=== PATIENT | female | born 1935 | race Caucasian/White ===

== ENCOUNTER 2025-03-21 17:23 | Inpatient (IN) | payer MEDICARE, OTHER, SELFPAY ==
[2025-03-21] VITALS (7 sets, daily range): BP systolic 121–175; BP diastolic 66–103; PULSE 94–103; RESP 15–18; TEMP 36.7; O2SAT 95–98; BMI 19.5
--- NOTE | 2025-03-21 17:26 | CTR_ITS ---
PROCEDURE INFORMATION: Exam: CT Cervical Spine Without Contrast Exam date and time: 03/21/2025 6:19 PM Age: 89 years old Clinical indication: Injury or trauma; Blunt trauma; EMS arrival for fall. PT found by sample collector laying on the floor in shower. Laceration to back of head. TECHNIQUE: Imaging protocol: Computed tomography of the cervical spine without contrast. Radiation optimization: All CT scans at this facility use at least one of these dose optimization techniques: automated exposure control; mA and/or kV adjustment per patient size (includes targeted exams where dose is matched to clinical indication); or iterative reconstruction. COMPARISON: CR (CHEST, ) 03/21/2025 5:59 PM RADIATION DOSE METRICS: Total DLP (mGy-cm): 140.2 FINDINGS: Bones: No acute fracture of the cervical spine is identified. Normal alignment and curvature. Multilevel degenerative change greatest at C5-C6. No severe spinal canal stenosis. There is incidental notation of biconcave compression deformity at T3 with approximately 75% height loss centrally. This is age indeterminate given the lack of any comparison imaging. Lungs: Lung apices reveal emphysematous changes but no trauma. Soft tissues: Unremarkable. CT/CT cervical spin wo con* [id number] IMPRESSION: 1. No acute trauma to the cervical spine is identified. 2. Incidental notation of biconcave compression deformity of T3 with 75% height loss centrally, age-indeterminate.
--- NOTE | 2025-03-21 17:26 | CTR_ITS ---
PROCEDURE INFORMATION: Exam: CT Head Without Contrast Exam date and time: 03/21/2025 6:19 PM Age: 89 years old Clinical indication: Injury or trauma; Blunt trauma (contusions or hematomas); EMS arrival for fall. PT found by piler laying on the floor in shower. Laceration to back of head. TECHNIQUE: Imaging protocol: Computed tomography of the head without contrast. Radiation optimization: All CT scans at this facility use at least one of these dose optimization techniques: automated exposure control; mA and/or kV adjustment per patient size (includes targeted exams where dose is matched to clinical indication); or iterative reconstruction. COMPARISON: CT cervical spin wo con* [id number] 03/21/2025 6:19 PM RADIATION DOSE METRICS: Total DLP (mGy-cm): 1061.4 FINDINGS: Brain: No acute infarction, hemorrhage, mass, or extra-axial fluid collection is identified. No midline shift. 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 Cerebral ventricles: No hydrocephalus. Paranasal sinuses: Paranasal sinuses are grossly clear. Mastoid air cells: Mastoid air cells are grossly clear. Bones: Calvarium appears intact. Soft tissues: Unremarkable. CT/CT head wo con* [id number] IMPRESSION: No acute intracranial abnormality.
--- NOTE | 2025-03-21 17:34 | XRR_ITS ---
PROCEDURE INFORMATION: Exam: XR Left Ribs with PA Chest Exam date and time: 03/21/2025 5:59 PM Age: 89 years old Clinical indication: Chest wall pain; Left; Lt rib pain post fall TECHNIQUE: Imaging protocol: Radiologic exam of the left ribs with PA chest. Views: 3 views COMPARISON: CR (CHEST, ) 03/21/2025 5:49 PM FINDINGS: Lungs: Visualized portions of the lungs are clear. Pleural spaces: Unremarkable. No pleural effusion. No pneumothorax. Heart/Mediastinum: Heart is within normal limits of size. Bones/joints: No displaced rib fracture is identified. XR/XR ribs LT mn 3V w CXR1V [id number] IMPRESSION: 1. No acute infiltrate. 2. No rib fracture is identified.
--- NOTE | 2025-03-21 17:35 | W.ED.FALL ---
Documented by User: Sai Allen DO 03/23/25 06:15 HPI - Fall General: Chief Complaint: Fall Stated Complaint: head lac s/p fall Time Seen by Provider: 03/21/25 17:26 History of Present Illness: 89-year-old female presents to the emergency room after a fall. She was found in the shower by her diesel service technician. She usually uses a walker she had not taken it with her she had gotten up to go to the restroom and fallen. She tells me she had waited for a while and became worried she would soil herself so tried to go on her own. She denies any chest pain lightheadedness or dizziness she did fall and hit the back of her head as a small laceration. She is complaining of left shoulder pain left hip pain left rib pain. No loss conscious no vomiting no visual changes Associated symptoms-after fall: Denies abdominal pain, chest pain or neck pain Related Data Home Medications ?Medication ?Instructions ?Recorded ?Confirmed amlodipine 10 mg tablet 10 mg PO DAILY 03/22/25 03/22/25 aspirin 81 mg tablet 81 mg PO DAILY 03/22/25 03/22/25 atorvastatin 20 mg tablet 20 mg PO QPM 03/22/25 03/22/25 clonidine 0.2 mg/24 hr weekly 1 patch transdermal Q7D 03/22/25 03/22/25 transdermal patch donepezil 10 mg tablet 10 mg PO BEDTIME 03/22/25 03/22/25 hydralazine 50 mg tablet 50 mg PO QID 03/22/25 03/22/25 levothyroxine 88 mcg tablet 88 mcg PO QAM 03/22/25 03/22/25 lisinopril 20 mg tablet 20 mg PO BID 03/22/25 03/22/25 magnesium oxide 400 mg PO BEDTIME 03/22/25 03/22/25 mirabegron 25 mg tablet,extended 25 mg PO BEDTIME 03/22/25 03/22/25 release 24 hr (Myrbetriq) omeprazole 20 mg capsule,delayed 20 mg PO DAILY 03/22/25 03/22/25 release polyethylene glycol 3350 17 gram 17 g PO DAILY PRN Constipation 03/22/25 03/22/25 oral powder packet (Miralax) potassium chloride 10 mEq 10 meq PO DAILY 03/22/25 03/22/25 capsule,extended release sertraline 25 mg tablet 25 mg PO DAILY 03/22/25 03/22/25 trazodone 50 mg tablet 50 mg PO BEDTIME PRN Insomnia 03/22/25 03/22/25 Allergies Allergy/AdvReac Type Severity Reaction Status Date / Time No Known Allergies Allergy Verified 03/21/25 17:30 Review of Systems Const: Denies: fever(s) or chills Card: Denies: chest pain Resp: Denies: dyspnea GI: Denies: abdominal pain : Denies: dysuria, urinary frequency or urinary urgency Musc: Reports: joint pain; Denies: neck pain or back pain Skin/Breast: Denies: rash Physical Exam Const: COMMON NORMALS: no acute distress GENERAL APPEARANCE: cooperative and comfortable ORIENTATION/CONSCIOUSNESS: Yes awake HENMT: COMMON NORMALS: normocephalic, atraumatic and hearing grossly normal bilaterally HEAD & SCALP: normocephalic and atraumatic Resp: COMMON NORMALS: normal respiratory effort, No retractions, No use of accessory muscles and clear to auscultation bilaterally AUSCULTATION: clear to auscultation bilaterally Cardio: COMMON NORMALS: regular rate, regular rhythm and No murmurs present (Cardio) RATE: regular rate RHYTHM: regular rhythm GI: COMMON NORMALS: Soft to palpation and No hepatosplenomegaly present AUSCULTATION: Yes normoactive bowel sounds PALPATION: Yes Soft to palpation, No Tenderness to palpation present (GI), No Guarding due to palpation present (GI) and Yes No hepatosplenomegaly present Extremity: COMMON NORMALS: normal to inspection, capillary refill normal, no clubbing, cyanosis or edema, no calf tenderness and no pedal edema Skin: COMMON NORMALS: no rashes or lesions noted GENERAL SKIN EXAM: no rashes or lesions noted Course Vital Signs: Vital signs: Vital Signs Temperature 98.3 F 03/23/25 03:38 Pulse Rate 85 03/23/25 06:10 Respiratory Rate 16 03/23/25 03:38 Blood Pressure 103/68 03/23/25 03:38 Pulse Oximetry 94 03/23/25 03:38 Oxygen Delivery Me thod Nasal Cannula 03/22/25 21:13 Oxygen Flow Rate 3 03/22/25 21:13 MDM - Fall Medical Decision Making Labs and imaging pending. Care signed out to Dr. Wahl at change of shift. See final notes for diagnosis and disposition. 89-year-old female checked out to me at shift change by the previous physician. She had fallen at home. She is experiencing significant left hip pain. Hip x-ray is negative. Shoulder x-ray shows no fracture and no dislocation. Rib x-rays were negative. No infiltrate. Head and cervical spine CTs are nonacute. Patient on my repeat examination still was experiencing extreme left hip pain with movement CT was ordered showing left acetabular fracture with left superior and inferior pubic rami fractures. Spoke with orthopedics. He will consult and see her in the morning. Likely nonsurgical management. Spoke with hospitalist who is willing to admit. She will see the patient in the emergency department. Lab Data 03/23/25 05:01 03/23/25 05:01 Radiology Impressions Cervical Spine CT 03/21/25 17:26 IMPRESSION: 1. No acute trauma to the cervical spine is identified. 2. Incidental notation of biconcave compression deformity of T3 with 75% height loss centrally, age-indeterminate. Head CT 03/21/25 17:26 IMPRESSION: No acute intracranial abnormality. Ribs X-Ray 03/21/25 17:34 IMPRESSION: 1. No acute infiltrate. 2. No rib fracture is identified. Hip/Pelvis X-Ray 03/21/25 17:36 IMPRESSION: No acute fracture is identified. Shoulder X-Ray 03/21/25 17:36 IMPRESSION: 1. No evidence of shoulder fracture or dislocation. 2. Wedging compression deformities of the thoracic spine of uncertain age. Pelvis CT 03/21/25 20:13 IMPRESSION: Left acetabular fracture also with fractures of the left superior and inferior pubic rami Chest X-Ray 03/22/25 04:03 IMPRESSION: 1. Lung hyperinflation. Laboratory Results WBC 15.86 10^3/uL (3.29-11.43) H 03/21/25 17:50 RBC 4.15 10^6/uL (3.85-5.65) 03/21/25 17:50 Hgb 10.10 g/dL (11.27-16.99) L 03/21/25 17:50 Hct 33.5 % (36-47) L 03/21/25 17:50 MCV 80.7 fl (85-98) L 03/21/25 17:50 MCH 24.3 pg (27-33) L 03/21/25 17:50 MCHC 30.1 g/dL (30-55) 03/21/25 17:50 RDW 14.5 % (12.1-15.1) 03/21/25 17:50 Plt Count 313 10^3/cmm (157-399) 03/21/25 17:50 MPV 11.0 fL (7.4-10.4) H 03/21/25 17:50 Neut % (Auto) 86.4 % 03/21/25 17:50 Lymph % (Auto) 4.2 % 03/21/25 17:50 [facility] % (Auto) 8.0 % 03/21/25 17:50 Eos % (Auto) 0.3 % 03/21/25 17:50 Baso % (Auto) 0.3 % 03/21/25 17:50 Neut # (Auto) 13.73 10^3/uL (1.8-7.7) H 03/21/25 17:50 Lymph # (Auto) 0.7 10^3/uL (0.8-4.8) L 03/21/25 17:50 [facility] # (Auto) 1.3 10^3/uL (0.2-0.9) H 03/21/25 17:50 Eos # (Auto) 0.0 10^3/uL (0.0-0.8) 03/21/25 17:50 Baso # (Auto) 0.0 10^3/uL (0.0-0.1) 03/21/25 17:50 Nucleated RBC % (auto) 0 % 03/21/25 17:50 Nucleated RBCs # 0.0 /100WBC 03/21/25 17:50 Sodium 137 mmol/L (136-145) 03/21/25 17:50 Potassium 4.3 mmol/L (3.5-5.1) 03/21/25 17:50 Chloride 96 mmol/L (98-107) L 03/21/25 17:50 Carbon Dioxide 27 mmol/L (22-29) 03/21/25 17:50 Anion Gap 19.3 (5-19) H 03/21/25 17:50 BUN 20 mg/dL (8-23) 03/21/25 17:50 Creatinine 0.9 mg/dL (0.5-0.9) 03/21/25 17:50 GFR Calculation Not Reportable 03/21/25 17:50 Glucose 111 mg/dL (65-115) 03/21/25 17:50 Calculated Osmolality 291 mOsm/kg (285-295) 03/21/25 17:50 Calcium 10.7 mg/dL (8.5-10.5) H 03/21/25 17:50 Total Bilirubin 0.2 mg/dL (0.15-1.2) 03/21/25 17:50 AST 13 U/L (0-32) 03/21/25 17:50 ALT 18 U/L (0-33) 03/21/25 17:50 Alkaline Phosphatase 106 U/L (35-105) H 03/21/25 17:50 Total Protein 7.1 g/dL (6.6-8.7) 03/21/25 17:50 Albumin 3.3 g/dL (3.5-5.2) L 03/21/25 17:50 Globulin 3.8 g/dL (1.3-4.6) 03/21/25 17:50 Urine Color Yellow (Yellow) 03/21/25 20:39 Urine Appearance Clear (CLEAR) 03/21/25 20:39 Urine pH 6.0 (5-7) 03/21/25 20:39 Ur Specific [place] 1.022 (1.005-1.030) 03/21/25 20:39 Urine Protein 1+ (Negative) A 03/21/25 20:39 Urine Glucose (UA) Negative (Normal) 03/21/25 20:39 Urine Ketones Trace (Negative) 03/21/25 20:39 Urine Blood Negative (Negative) 03/21/25 20:39 Urine Nitrate Negative (Negative) 03/21/25 20:39 Urine Bilirubin Negative (Negative) 03/21/25 20:39 Urine Urobilinogen 1.0 mg/dL (Negative) 03/21/25 20:39 Ur Leukocyte Esterase Negative (Negative) 03/21/25 20:39 Urine RBC 0-2 /hpf (0-2) 03/21/25 20:39 Urine WBC 0-5 /hpf (0-5) 03/21/25 20:39 Ur Squamous Epith Cells 0-5 /hpf (0-5) 03/21/25 20:39 Amorphous Sediment Not Reportable 03/21/25 20:39 Urine Bacteria None seen /hpf (NONE) 03/21/25 20:39 Hyaline Casts 6.20 /lpf 03/21/25 20:39 Discharge Plan Discharge Patient Disposition: Admitted As Inpatient Admit Provider: Tamiko Galaviz Clinical Impression: Closed fracture of left inferior pubic ramus, Closed fracture of left superior pubic ramus Acetabulum fracture, left Qualifiers: Encounter type: initial encounter Sublocation of acetabulum: other portion of acetabulum Fracture type: closed Qualified Code(s): S32.492A - Other specified fracture of left acetabulum, initial encounter for closed fracture Condition: Stable Coding Level of Care Code ED Billiard Player for Chg Fwd Documented by User: Mt Wahl, 03/21/25 22:47 HPI - Fall General: Chief Complaint: Fall Stated Complaint: head lac s/p fall Time Seen by Provider: 03/21/25 17:26 Related Data Home Medications ?Medication ?Instructions ?Recorded ?Confirmed amlodipine 10 mg tablet 10 mg PO DAILY 03/22/25 03/22/25 aspirin 81 mg tablet 81 mg PO DAILY 03/22/25 03/22/25 atorvastatin 20 mg tablet 20 mg PO QPM 03/22/25 03/22/25 clonidine 0.2 mg/24 hr weekly 1 patch transdermal Q7D 03/22/25 03/22/25 transdermal patch donepezil 10 mg tablet 10 mg PO BEDTIME 03/22/25 03/22/25 hydralazine 50 mg tablet 50 mg PO QID 03/22/25 03/22/25 levothyroxine 88 mcg tablet 88 mcg PO QAM 03/22/25 03/22/25 lisinopril 20 mg tablet 20 mg PO BID 03/22/25 03/22/25 magnesium oxide 400 mg PO BEDTIME 03/22/25 03/22/25 mirabegron 25 mg tablet,extended 25 mg PO BEDTIME 03/22/25 03/22/25 release 24 hr (Myrbetriq) omeprazole 20 mg capsule,delayed 20 mg PO DAILY 03/22/25 03/22/25 release polyethylene glycol 3350 17 gram 17 g PO DAILY PRN Constipation 03/22/25 03/22/25 oral powder packet (Miralax) potassium chloride 10 mEq 10 meq PO DAILY 03/22/25 03/22/25 capsule,extended release sertraline 25 mg tablet 25 mg PO DAILY 03/22/25 03/22/25 trazodone 50 mg tablet 50 mg PO BEDTIME PRN Insomnia 03/22/25 03/22/25 Allergies Allergy/AdvReac Type Severity Reaction Status Date / Time No Known Allergies Allergy Verified 03/21/25 17:30 Course Vital Signs: Vital signs: Vital Signs Temperature 98.3 F 03/23/25 03:38 Pulse Rate 85 03/23/25 06:10 Respiratory Rate 16 03/23/25 03:38 Blood Pressure 103/68 03/23/25 03:38 Pulse Oximetry 94 03/23/25 03:38 Oxygen Delivery Me thod Nasal Cannula 03/22/25 21:13 Oxygen Flow Rate 3 03/22/25 21:13 MDM - Fall Medical Decision Making 89-year-old female checked out to me at shift change by the previous physician. She had fallen at home. She is experiencing significant left hip pain. Hip x-ray is negative. Shoulder x-ray shows no fracture and no dislocation. Rib x-rays were negative. No infiltrate. Head and cervical spine CTs are nonacute. Patient on my repeat examination still was experiencing extreme left hip pain with movement CT was ordered showing left acetabular fracture with left superior and inferior pubic rami fractures. Spoke with orthopedics. He will consult and see her in the morning. Likely nonsurgical management. Spoke with hospitalist who is willing to admit. She will see the patient in the emergency department. Lab Data 03/23/25 05:01 03/23/25 05:01 Radiology Impressions Cervical Spine CT 03/21/25 17:26 IMPRESSION: 1. No acute trauma to the cervical spine is identified. 2. Incidental notation of biconcave compression deformity of T3 with 75% height loss centrally, age-indeterminate. Head CT 03/21/25 17:26 IMPRESSION: No acute intracranial abnormality. Ribs X-Ray 03/21/25 17:34 IMPRESSION: 1. No acute infiltrate. 2. No rib fracture is identified. Hip/Pelvis X-Ray 03/21/25 17:36 IMPRESSION: No acute fracture is identified. Shoulder X-Ray 03/21/25 17:36 IMPRESSION: 1. No evidence of shoulder fracture or dislocation. 2. Wedging compression deformities of the thoracic spine of uncertain age. Pelvis CT 03/21/25 20:13 IMPRESSION: Left acetabular fracture also with fractures of the left superior and inferior pubic rami Chest X-Ray 03/22/25 04:03 IMPRESSION: 1. Lung hyperinflation. Laboratory Results WBC 15.86 10^3/uL (3.29-11.43) H 03/21/25 17:50 RBC 4.15 10^6/uL (3.85-5.65) 03/21/25 17:50 Hgb 10.10 g/dL (11.27-16.99) L 03/21/25 17:50 Hct 33.5 % (36-47) L 03/21/25 17:50 MCV 80.7 fl (85-98) L 03/21/25 17:50 MCH 24.3 pg (27-33) L 03/21/25 17:50 MCHC 30.1 g/dL (30-55) 03/21/25 17:50 RDW 14.5 % (12.1-15.1) 03/21/25 17:50 Plt Count 313 10^3/cmm (157-399) 03/21/25 17:50 MPV 11.0 fL (7.4-10.4) H 03/21/25 17:50 Neut % (Auto) 86.4 % 03/21/25 17:50 Lymph % (Auto) 4.2 % 03/21/25 17:50 [facility] % (Auto) 8.0 % 03/21/25 17:50 Eos % (Auto) 0.3 % 03/21/25 17:50 Baso % (Auto) 0.3 % 03/21/25 17:50 Neut # (Auto) 13.73 10^3/uL (1.8-7.7) H 03/21/25 17:50 Lymph # (Auto) 0.7 10^3/uL (0.8-4.8) L 03/21/25 17:50 [facility] # (Auto) 1.3 10^3/uL (0.2-0.9) H 03/21/25 17:50 Eos # (Auto) 0.0 10^3/uL (0.0-0.8) 03/21/25 17:50 Baso # (Auto) 0.0 10^3/uL (0.0-0.1) 03/21/25 17:50 Nucleated RBC % (auto) 0 % 03/21/25 17:50 Nucleated RBCs # 0.0 /100WBC 03/21/25 17:50 Sodium 137 mmol/L (136-145) 03/21/25 17:50 Potassium 4.3 mmol/L (3.5-5.1) 03/21/25 17:50 Chloride 96 mmol/L (98-107) L 03/21/25 17:50 Carbon Dioxide 27 mmol/L (22-29) 03/21/25 17:50 Anion Gap 19.3 (5-19) H 03/21/25 17:50 BUN 20 mg/dL (8-23) 03/21/25 17:50 Creatinine 0.9 mg/dL (0.5-0.9) 03/21/25 17:50 GFR Calculation Not Reportable 03/21/25 17:50 Glucose 111 mg/dL (65-115) 03/21/25 17:50 Calculated Osmolality 291 mOsm/kg (285-295) 03/21/25 17:50 Calcium 10.7 mg/dL (8.5-10.5) H 03/21/25 17:50 Total Bilirubin 0.2 mg/dL (0.15-1.2) 03/21/25 17:50 AST 13 U/L (0-32) 03/21/25 17:50 ALT 18 U/L (0-33) 03/21/25 17:50 Alkaline Phosphatase 106 U/L (35-105) H 03/21/25 17:50 Total Protein 7.1 g/dL (6.6-8.7) 03/21/25 17:50 Albumin 3.3 g/dL (3.5-5.2) L 03/21/25 17:50 Globulin 3.8 g/dL (1.3-4.6) 03/21/25 17:50 Urine Color Yellow (Yellow) 03/21/25 20:39 Urine Appearance Clear (CLEAR) 03/21/25 20:39 Urine pH 6.0 (5-7) 03/21/25 20:39 Ur Specific [place] 1.022 (1.005-1.030) 03/21/25 20:39 Urine Protein 1+ (Negative) A 03/21/25 20:39 Urine Glucose (UA) Negative (Normal) 03/21/25 20:39 Urine Ketones Trace (Negative) 03/21/25 20:39 Urine Blood Negative (Negative) 03/21/25 20:39 Urine Nitrate Negative (Negative) 03/21/25 20:39 Urine Bilirubin Negative (Negative) 03/21/25 20:39 Urine Urobilinogen 1.0 mg/dL (Negative) 03/21/25 20:39 Ur Leukocyte Esterase Negative (Negative) 03/21/25 20:39 Urine RBC 0-2 /hpf (0-2) 03/21/25 20:39 Urine WBC 0-5 /hpf (0-5) 03/21/25 20:39 Ur Squamous Epith Cells 0-5 /hpf (0-5) 03/21/25 20:39 Amorphous Sediment Not Reportable 03/21/25 20:39 Urine Bacteria None seen /hpf (NONE) 03/21/25 20:39 Hyaline Casts 6.20 /lpf 03/21/25 20:39 All radiology interpretation(s) finalized by discharge Discharge Plan Discharge Patient Disposition: Admitted As Inpatient Admit Provider: Tamiko Galaviz Clinical Impression: Closed fracture of left inferior pubic ramus, Closed fracture of left superior pubic ramus Acetabulum fracture, left Qualifiers: Encounter type: initial encounter Sublocation of acetabulum: other portion of acetabulum Fracture type: closed Qualified Code(s): S32.492A - Other specified fracture of left acetabulum, initial encounter for closed fracture Condition: Stable Coding Level of Care Code ED Billiard Player for Jaime Smith
--- NOTE | 2025-03-21 17:36 | XRR_ITS ---
PROCEDURE INFORMATION: Exam: XR Left Hip Exam date and time: 03/21/2025 6:03 PM Age: 89 years old Clinical indication: Hip pain; Left hip; Prior surgery; Surgery date: 6+ months; Surgery type: Lt hip arthroplasty; Additional info: Lt shoulder pain post fall TECHNIQUE: Imaging protocol: Radiologic exam of the left hip. Views: 2 or 3 views hip with pelvis when performed. COMPARISON: No relevant prior studies available. FINDINGS: Bones/joints: Bones are moderately osteopenic. There is old healed proximal left femoral fracture status post open reduction internal fixation with metallic hardware. There is also old healed fracture proximal right femur post open reduction internal fixation with metallic hardware. No acute fracture is demonstrated. There is what appears to be vertebroplasty involving the 1st sacral segment. Soft tissues: Unremarkable. Vasculature: There is distal end of a abdominal aortic in the iliac stent graft repair seen. XR/XR hip LT 2-3V wo/w pel* [id number] IMPRESSION: No acute fracture is identified.
--- NOTE | 2025-03-21 17:36 | XRR_ITS ---
PROCEDURE INFORMATION: Exam: XR Left Shoulder Exam date and time: 03/21/2025 5:49 PM Age: 89 years old Clinical indication: Left; Lt shoulder pain post fall TECHNIQUE: Imaging protocol: Radiologic exam of the left shoulder. Views: 2 or more views. COMPARISON: No relevant prior studies available. FINDINGS: Bones/joints: There is no evidence of acute fracture or dislocation. There are degenerative changes in the acromioclavicular joint with degenerative spurring from the distal clavicle. There is moderate compression deformity of T4 and mild compression at T5 and T7 of uncertain age, probably chronic. Soft tissues: Normal. XR/XR shoulder LT min 2V* [id number] IMPRESSION: 1. No evidence of shoulder fracture or dislocation. 2. Wedging compression deformities of the thoracic spine of uncertain age.
[2025-03-21 18:04] LABS: Basophils % 0.3 %; Eosinophils % 0.3 %; Hematocrit 33.5 % (36-47); Lymphocytes # 0.7 10^3/uL (0.8-4.8); Lymphocytes % 4.2 %; Mean Corpuscular HGB Conc 30.1 g/dL (30-55); Mean Corpuscular Hemoglobin 24.3 pg (27-33); Mean Corpuscular Volume 80.7 fl (85-98); Monocytes # 1.3 10^3/uL (0.2-0.9); Neutrophils # 13.73 10^3/uL (1.8-7.7); Neutrophils % 86.4 %; Nucleated Red Blood Cells % 0 %; Platelet Count 313 10^3/cmm (157-399); Red Blood Count 4.15 10^6/uL (3.85-5.65); Red Cell Distribution Width 14.5 % (12.1-15.1); White Blood Count 15.86 10^3/uL (3.29-11.43)
[2025-03-21 18:12] LABS: Albumin Level 3.3 g/dL (3.5-5.2); Alkaline Phosphatase 106 U/L (35-105); Chloride 96 mmol/L (98-107); Potassium 4.3 mmol/L (3.5-5.1); Sodium 137 mmol/L (136-145)
[2025-03-21 18:50] LABS: Alanine Aminotransferase 18 U/L (0-33); Anion Gap 19.3 (5-19); Blood Urea Nitrogen 20 mg/dL (8-23); Calcium 10.7 mg/dL (8.5-10.5); Carbon Dioxide 27 mmol/L (22-29); Globulin 3.8 g/dL (1.3-4.6); Glucose 111 mg/dL (65-115); Osmolality Calculated 291 mOsm/kg (285-295); Total Bilirubin 0.2 mg/dL (0.15-1.2); Total Protein 7.1 g/dL (6.6-8.7)
[2025-03-21 19:02] LABS: Aspartate Amino Transferase 13 U/L (0-32)
[2025-03-21] MEDS: ondansetron 2 mg/ML SDV 2 mL 4 MG IVP (19:26)
[2025-03-21] MEDS: morphine 4 mg/mL SDV 1 mL 2 MG IVP (19:26)
--- NOTE | 2025-03-21 20:13 | CTR_ITS ---
PROCEDURE INFORMATION: Exam: CT Pelvis Without Contrast, Skeleton Exam date and time: 03/21/2025 8:44 PM Age: 89 years old Clinical indication: Injury or trauma; Blunt trauma (contusions or hematomas); Prior surgery; Surgery date: 6+ months; Surgery type: Bilat troch nails. Aortic endograft. EMS arrival for fall. Patient found on shower room floor by caregiver. C/O left hip pain. TECHNIQUE: Imaging protocol: Computed tomography of the pelvis without contrast. Exam focused on the skeleton. Radiation optimization: All CT scans at this facility use at least one of these dose optimization techniques: automated exposure control; mA and/or kV adjustment per patient size (includes targeted exams where dose is matched to clinical indication); or iterative reconstruction. 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 This is not fully evaluated. Bones/joints: There is dense material within the 1st sacral segment common Body and lateral wings from prior vertebroplasty. There is metallic hardware right femoral neck from internal fixation of prior injury. There is metallic hardware in the left femoral neck and proximal left femur with old healed left femoral neck fracture. There is acute minimally displaced fracture involving the left inferior pubic ramus. There is also nondisplaced longitudinal fracture of the left superior pubic ramus extending to the body of the pubis. There is also comminuted anterior wall type left acetabular fracture. Soft tissues: Unremarkable. CT/CT bony pelvis [id number] IMPRESSION: Left acetabular fracture also with fractures of the left superior and inferior pubic rami
[2025-03-21 20:53] LABS: Bilirubin Urine Negative (Negative); Blood Urine Negative (Negative); Glucose Urine UA Negative (Normal); Ketones Urine Trace (Negative); Leukocyte Esterase Urine Negative (Negative); Nitrate Urine Negative (Negative); Protein Urine 1+ (Negative); Specific Gravity, Urine 1.022 (1.005-1.030); Urine Appearance Clear (CLEAR); Urine Color Yellow (Yellow)
[2025-03-21 20:58] LABS: Add Urine Microscopic? YES; Bacteria Urine None Seen /hpf; RBC Urine 0-2 /hpf (0-2); Squamous Epithelial Cell Urine 0-5 /hpf (0-5); WBC Urine 0-5 /hpf (0-5)
[2025-03-22] VITALS (12 sets, daily range): BP systolic 99–136; BP diastolic 65–77; PULSE 61–98; RESP 15–19; TEMP 36.5–36.9; O2SAT 91–98
[2025-03-22 03:59] LABS: Glucose Point of Care 134 mg/dL (70-110)
--- NOTE | 2025-03-22 04:03 | XRR_ITS ---
PROCEDURE INFORMATION: Exam: XR Chest Exam date and time: 03/22/2025 4:16 AM Age: 89 years old Clinical indication: Shortness of breath; Worsening hypoxia; Additional info: Increased o2 requirement TECHNIQUE: Imaging protocol: Radiologic exam of the chest. Views: 1 view. COMPARISON: CR (CHEST, ) 03/21/2025 5:59 PM FINDINGS: Lungs: The lungs are hyperinflated. No focal consolidation is appreciated. Pleural spaces: Unremarkable. No pleural effusion. No pneumothorax. Heart/Mediastinum: Heart size is normal. There is calcified plaque involving the aorta. Bones/joints: There are postoperative changes involving the right shoulder. XR/XR chest 1V portable [id number] IMPRESSION: 1. Lung hyperinflation.
[2025-03-22] MEDS: ipratropium-albuterol 3 mL Neb INHALATION (04:30)
[2025-03-22] MEDS: FUROsemide 10 mg/mL SDV 10mL 60 MG IVP (04:38)
--- NOTE | 2025-03-22 05:10 | PM.HP ---
Providers/Chief Complaint Admitting Physician: Tamiko Galaviz MD--- patient seen before midnight Chief Complaint: head lac s/p fall History of Present Illness Francy Chris is a 89 year old female with medical history significant for hypertension hyperlipidemia who gets around fairly well but had had falls in the past resulting in pelvic fracture patient had a bilateral intra trochanteric nailing to both hip because of fracture this time patient had taking a mechanical fall she walks with a cane and fell on the left side fracturing the left acetabulum CT of the pelvic had shown a nondisplaced pelvic fracture on the left and all this has been quoted to be nonsurgical patient will need some good time over in the rehab to recuperate and get well to ambulate. The hallmark of the treatment is pain management and PT OT for evaluation and rehabilitation. Orthopedics on consult to follow-up for a final decision on care Review of Systems Narrative: Generally patient is in apparent distress because of multiple fractures of the lower extremity significant for left acetabulum fracture and left pelvic fracture Medications/Allergies Home Medications ?Medication ?Instructions ?Recorded ?Confirmed ?Last Taken ?Type amlodipine 10 mg tablet 10 mg PO DAILY 03/22/25 03/22/25 03/21/25 08:00 History aspirin 81 mg tablet 81 mg PO DAILY 03/22/25 03/22/25 03/21/25 08:00 History atorvastatin 20 mg tablet 20 mg PO QPM 03/22/25 03/22/25 03/20/25 18:00 History clonidine 0.2 mg/24 hr weekly 1 patch transdermal Q7D 03/22/25 03/22/25 Unknown History transdermal patch donepezil 10 mg tablet 10 mg PO BEDTIME 03/22/25 03/22/25 03/20/25 18:00 History hydralazine 50 mg tablet 50 mg PO QID 03/22/25 03/22/25 03/21/25 08:00 History levothyroxine 88 mcg tablet 88 mcg PO QAM 03/22/25 03/22/25 03/21/25 08:00 History lisinopril 20 mg tablet 20 mg PO BID 03/22/25 03/22/25 03/21/25 08:00 History magnesium oxide 400 mg PO BEDTIME 03/22/25 03/22/25 03/20/25 18:00 History mirabegron 25 mg tablet,extended 25 mg PO BEDTIME 03/22/25 03/22/25 03/20/25 18:00 History release 24 hr (Myrbetriq) omeprazole 20 mg capsule,delayed 20 mg PO DAILY 03/22/25 03/22/25 03/21/25 08:00 History release polyethylene glycol 3350 17 gram 17 g PO DAILY PRN Constipation 03/22/25 03/22/25 Unknown History oral powder packet (Miralax) potassium chloride 10 mEq 10 meq PO DAILY 03/22/25 03/22/25 03/21/25 08:00 History capsule,extended release sertraline 25 mg tablet 25 mg PO DAILY 03/22/25 03/22/25 03/21/25 08:00 History trazodone 50 mg tablet 50 mg PO BEDTIME PRN Insomnia 03/22/25 03/22/25 Unknown History Allergies Allergy/AdvReac Type Severity Reaction Status Date / Time No Known Allergies Allergy Verified 03/21/25 17:30 Vitals/I&O/Wt Last Vital Signs Temp 98.1 F 03/22/25 04:00 Pulse 92 03/22/25 04:30 Resp 18 03/22/25 04:30 BP 135/71 03/22/25 04:00 Pulse Ox 96 03/22/25 04:30 O2 Del Method Nasal Cannula 03/22/25 04:30 O2 Flow Rate 3 03/22/25 04:30 03/21/25 03/21/25 03/22/25 14:59 22:59 06:59 Output Total 100 / 100 Balance -100 / -100 Weight last 48 hrs Weight 45.359 kg Physical Exam Narrative: General patient is lying still supine in bed relating to me that she is in a lot of pain. Pain management initiated with some morphine for care. HEENT normocephalic/atraumatic neck neck is supple cardiovascular heart rate is regular lungs are pretty much clear abdomen soft nontender nondistended unremarkable extremities significant for musculoskeletal injury with fractures of the left acetabulum and left pelvic. Extremities has no no edema has good pulses neurology he has no focality. Urinary Catheter Management: Heath: Cath Placed During This Visit: yes Urinary Catheter Date of Insertion: 03/21/25 Urinary Catheter Time of Insertion: 21:30 Data 03/21/25 17:50 03/21/25 17:50 A&P Assessment and plan (1) Closed fracture of left superior pubic ramus: Continue to monitor and optimize for pain management and PT OT for fall and eventual rehab placement when medically stable (2) Closed fracture of left inferior pubic ramus: Continue to care and optimize pain management and PT OT evaluate for rehab when medically stable (3) Acetabulum fracture, left: Acetabular fracture - Continue with pain management - PT OT to further evaluate and for rehab placement when medically stable (4) Pelvic pain: Patient has left superior ramus pelvic fracture nondisplaced - Pain management with help and following up with physical therapy (5) Hip pain: Status post left acetabular fracture with pain Get pain management for care PT OT on the orthopedic direction (6) Hypertension: Continue home medication for blood pressure. Plan GI and DVT prophylaxis in place PDMP PDMP Reviewed: Last Reviewed 03/22/25 08:10 by Tamiko Galaviz MD Attestations Medical Necessity Statement*: Patient with multiple fractures who cannot walk at this time will need acute pain management and also orthopedics to further see the patient for a final recommendation aside from heading to rehab at this time once medically stable. Patient needs 2 midnights for inpatient care. Coding Level of Care Code 56984 Diagnoses Closed fracture of left superior pubic ramus S32.512A Closed fracture of left inferior pubic ramus S32.592A Acetabulum fracture, left S32.402A Pelvic pain R10.2 Hip pain M25.559 Hypertension I10 Time Spent (min) 60
[2025-03-22] MEDS: levothyroxine 88 mcg Tablet PO (05:44)
[2025-03-22] MEDS: morphine 4 mg/mL SDV 1 mL 2 MG IVP (06:20)
--- NOTE | 2025-03-22 08:30 | PM.CONSULT ---
Providers/Reason For Consult Consulting Physician/Specialty*: Hospitalist Reason for Consult*: Left acetabular fracture Attending Physician: Tamiko Galaviz MD History of Present Illness History of Present Illness Francy Chris is a 89 year old female had a fall in the shower sustaining a left acetabular fracture. Patient is complaining of left shoulder pain and left hip pain. Patient was asleep when I first walked into the room. After awakening she is complaining more of left shoulder pain than left hip pain. Otherwise patient is comfortable. Review of Systems General: Reports: 10 or more systems reviewed and unremarkable except in HPI and below Medications/Allergies Home Medications ?Medication ?Instructions ?Recorded ?Confirmed ?Last Taken ?Type amlodipine 10 mg tablet 10 mg PO DAILY 03/22/25 03/22/25 03/21/25 08:00 History aspirin 81 mg tablet 81 mg PO DAILY 03/22/25 03/22/25 03/21/25 08:00 History atorvastatin 20 mg tablet 20 mg PO QPM 03/22/25 03/22/25 03/20/25 18:00 History clonidine 0.2 mg/24 hr weekly 1 patch transdermal Q7D 03/22/25 03/22/25 Unknown History transdermal patch donepezil 10 mg tablet 10 mg PO BEDTIME 03/22/25 03/22/25 03/20/25 18:00 History hydralazine 50 mg tablet 50 mg PO QID 03/22/25 03/22/25 03/21/25 08:00 History levothyroxine 88 mcg tablet 88 mcg PO QAM 03/22/25 03/22/25 03/21/25 08:00 History lisinopril 20 mg tablet 20 mg PO BID 03/22/25 03/22/25 03/21/25 08:00 History magnesium oxide 400 mg PO BEDTIME 03/22/25 03/22/25 03/20/25 18:00 History mirabegron 25 mg tablet,extended 25 mg PO BEDTIME 03/22/25 03/22/25 03/20/25 18:00 History release 24 hr (Myrbetriq) omeprazole 20 mg capsule,delayed 20 mg PO DAILY 03/22/25 03/22/25 03/21/25 08:00 History release polyethylene glycol 3350 17 gram 17 g PO DAILY PRN Constipation 03/22/25 03/22/25 Unknown History oral powder packet (Miralax) potassium chloride 10 mEq 10 meq PO DAILY 03/22/25 03/22/25 03/21/25 08:00 History capsule,extended release sertraline 25 mg tablet 25 mg PO DAILY 03/22/25 03/22/25 03/21/25 08:00 History trazodone 50 mg tablet 50 mg PO BEDTIME PRN Insomnia 03/22/25 03/22/25 Unknown History Allergies Allergy/AdvReac Type Severity Reaction Status Date / Time No Known Allergies Allergy Verified 03/21/25 17:30 Current Medications Generic Name Dose Route Start Last Admin Trade Name Freq PRN Reason Stop Dose Admin Levothyroxine Sodium 88 mcg 03/22/25 06:00 03/22/25 05:44 Levothyroxine 88 Mcg Tablet PO 88 mcg QAM GARY Administration Morphine Sulfate 2 mg 03/22/25 05:54 03/22/25 06:20 Morphine 4 Mg/Ml Sdv 1 Ml IVP 2 mg Q4H PRN Administration SEVERE PAIN Vitals/I&O/Wt Last Vital Signs Temp 97.9 F 03/22/25 07:13 Pulse 92 03/22/25 07:13 Resp 18 03/22/25 07:13 BP 114/77 03/22/25 07:13 Pulse Ox 95 03/22/25 07:13 O2 Del Method Nasal Cannula 03/22/25 07:13 O2 Flow Rate 3 03/22/25 04:30 03/21/25 03/22/25 03/22/25 22:59 06:59 14:59 Output Total 100 / 100 Balance -100 / -100 Weight last 48 hrs Weight 85 lb 9.6 oz Weight 100 lb Physical Exam Narrative: Alert and oriented x 3 Head is normocephalic atraumatic Respirations are intact No evidence of any rashes or infection 5/5 strength in bilateral upper and lower extremities Sensation intact in all extremities Patient has pain when trying to move her left leg or left arm. Urinary Catheter Management: Heath: Cath Placed During This Visit: yes Reason for Continuing Indwelling Catheter: Other Urinary Catheter Date of Insertion: 03/21/25 Urinary Catheter Time of Insertion: 21:30 Data 03/21/25 17:50 03/21/25 17:50 A&P Assessment and plan (1) Acetabulum fracture, left: Patient has a left acetabular fracture. At this point she should be toe-touch weightbearing Up with physical therapy with toe-touch weightbearing this will be for 12 weeks. X-ray of left shoulder does not show any fracture. PDMP PDMP Reviewed: Not Reviewed Coding Level of Care Code Acute Code for Chg Fwd Diagnoses Other closed fracture of left acetabulum, initial encounter S32.492A Encounter type: initial encounter Sublocation of acetabulum: other portion of acetabulum Fracture type: closed
[2025-03-22] MEDS: amlodipine 10 mg Tablet PO (09:50)
[2025-03-22] MEDS: lisinopril 20 mg Tablet PO ×2 (09:50→18:05)
[2025-03-22] MEDS: aspirin 81 mg EC Tablet PO (09:50)
--- NOTE | 2025-03-22 12:42 | P.PN_ITS ---
Subjective 2 Subjective: seen today has a scalp tenderness Vitals/I&O/Wt Last Vital Signs Temp 98.0 F 03/22/25 11:42 Pulse 83 03/22/25 11:42 Resp 18 03/22/25 11:42 BP 104/65 03/22/25 11:42 Pulse Ox 98 03/22/25 11:42 O2 Del Method Nasal Cannula 03/22/25 11:42 O2 Flow Rate 3 03/22/25 04:30 03/21/25 03/22/25 03/22/25 22:59 06:59 14:59 Output Total 100 / 100 Balance -100 / -100 Weight last 48 hrs Weight 38.828 kg Weight 45.359 kg Physical Exam 2 Narrative: general: laying in bed appearing comfortable heent: left occipital area scalp hematoma present, not actively bleeding/laceration present abdomen: soft, non tender lungs clear to auscultation extremities: no edema b/l LE pain present with movement Urinary Catheter Management: Heath: Cath Placed During This Visit: yes Reason for Continuing Indwelling Catheter: Other Urinary Catheter Date of Insertion: 03/21/25 Urinary Catheter Time of Insertion: 21:30 Data 03/21/25 17:50 03/21/25 17:50 A&P Assessment and plan (1) Closed fracture of left superior pubic ramus: Continue to monitor and optimize for pain management and PT OT for fall and eventual rehab placement when medically stable (2) Closed fracture of left inferior pubic ramus: Continue to care and optimize pain management and PT OT evaluate for rehab when medically stable (3) Acetabulum fracture, left: Acetabular fracture - Continue with pain management - PT OT to further evaluate and for rehab placement when medically stable (4) Pelvic pain: Patient has left superior ramus pelvic fracture nondisplaced - Pain management with help and following up with physical therapy (5) Hip pain: Status post left acetabular fracture with pain Get pain management for care PT OT on the orthopedic direction (6) Hypertension: Continue home medication for blood pressure. Plan GI and DVT prophylaxis in place 03/22/2025 non-operable fracture pain mgmt and physical therapy will need rehab placement at [place] orthopedics consulted PDMP PDMP Reviewed: Not Reviewed Attestations 2 Medical Necessity Statement*: Patient with multiple fractures who cannot walk at this time will need acute pain management and also orthopedics to further see the patient for a final recommendation aside from heading to rehab at this time once medically stable. Patient needs 2 midnights for inpatient care. Diagnoses Closed fracture of left superior pubic ramus S32.512A Closed fracture of left inferior pubic ramus S32.592A Other closed fracture of left acetabulum, initial encounter S32.492A Encounter type: initial encounter Fracture type: closed Sublocation of acetabulum: other portion of acetabulum Pelvic pain R10.2 Hip pain M25.559 Hypertension I10
[2025-03-22] MEDS: heparin 5,000 unit/mL INJ 1 mL 5000 UNIT SUBCUT (14:05)
[2025-03-22 15:47] LABS: Procalcitonin 0.32 ng/mL (0-0.5); Thyroid Stimulating Hormone 1.93 uIU/mL (0.27-4.20)
[2025-03-22] MEDS: ATORVASTATIN 10 MG TABLET 20 MG PO (18:05)
[2025-03-22] MEDS: acetaminophen 325 mg Tablet 650 MG PO (18:05)
[2025-03-22] MEDS: donepezil 5 MG Tablet 10 MG PO (20:32)
[2025-03-22] MEDS: magnesium oxide 400 mg tablet PO (20:32)
[2025-03-23] VITALS (9 sets, daily range): BP systolic 92–121; BP diastolic 57–76; PULSE 68–94; RESP 15–16; TEMP 36.5–36.8; O2SAT 94–97
[2025-03-23] MEDS: heparin 5,000 unit/mL INJ 1 mL 5000 UNIT SUBCUT ×2 (01:16→12:39)
[2025-03-23] MEDS: levothyroxine 88 mcg Tablet PO (05:08)
[2025-03-23 05:23] LABS: Basophils # 0.1 10^3/uL (0.0-0.1); Basophils % 0.4 %; Eosinophils # 0.1 10^3/uL (0.0-0.8); Hematocrit 28.6 % (36-47); Lymphocytes # 0.7 10^3/uL (0.8-4.8); Lymphocytes % 6.2 %; Mean Corpuscular HGB Conc 29.4 g/dL (30-55); Mean Corpuscular Hemoglobin 24.5 pg (27-33); Mean Corpuscular Volume 83.4 fl (85-98); Mean Platelet Volume 11.6 fL (7.4-10.4); Monocytes # 1.3 10^3/uL (0.2-0.9); Neutrophils # 9.31 10^3/uL (1.8-7.7); Neutrophils % 80.8 %; Nucleated Red Blood Cells % 0 %; Platelet Count 241 10^3/cmm (157-399); Red Blood Count 3.43 10^6/uL (3.85-5.65); Red Cell Distribution Width 14.9 % (12.1-15.1); White Blood Count 11.53 10^3/uL (3.29-11.43)
[2025-03-23 05:41] LABS: Alanine Aminotransferase 10 U/L (0-33); Albumin Level 2.7 g/dL (3.5-5.2); Alkaline Phosphatase 96 U/L (35-105); Anion Gap 20.4 (5-19); Aspartate Amino Transferase 8 U/L (0-32); Blood Urea Nitrogen 29 mg/dL (8-23); Calcium 10.1 mg/dL (8.5-10.5); Carbon Dioxide 27 mmol/L (22-29); Chloride 97 mmol/L (98-107); Globulin 3.4 g/dL (1.3-4.6); Glucose 68 mg/dL (65-115); Osmolality Calculated 294 mOsm/kg (285-295); Potassium 4.4 mmol/L (3.5-5.1); Sodium 140 mmol/L (136-145); Total Bilirubin 0.2 mg/dL (0.15-1.2); Total Protein 6.1 g/dL (6.6-8.7)
[2025-03-23] MEDS: lisinopril 20 mg Tablet PO (09:12)
[2025-03-23] MEDS: aspirin 81 mg EC Tablet PO (09:12)
[2025-03-23] MEDS: pantoprazole DR 40 mg Tablet PO (09:12)
[2025-03-23] MEDS: amlodipine 10 mg Tablet PO (09:12)
[2025-03-23] MEDS: acetaminophen 325 mg Tablet 650 MG PO (09:12)
--- NOTE | 2025-03-23 10:03 | PC.SOCIAL ---
IMM Update pg 2 of IMM Updated and reviewed w/ patients daughter. Copy provided and copy dated, initialed and placed in chart.
--- NOTE | 2025-03-23 15:46 | P.PN_ITS ---
Subjective 2 Subjective: Denies any new complaints today. Patient was noted to be confused after having received morphine previously earlier this morning. Medications: Reviewed: Yes Vitals/I&O/Wt Last Vital Signs Temp 98.0 F 03/23/25 11:17 Pulse 80 03/23/25 14:00 Resp 15 03/23/25 11:17 BP 109/71 03/23/25 11:17 Pulse Ox 94 03/23/25 11:17 O2 Del Method Nasal Cannula 03/23/25 11:17 O2 Flow Rate 3 03/23/25 08:00 03/23/25 03/23/25 03/23/25 06:59 14:59 22:59 Intake Total 240 / 600 240 / 240 Output Total 400 / 700 Balance -160 / -100 240 / 240 Weight last 48 hrs Weight 38.555 kg Weight 38.828 kg Weight 45.359 kg Physical Exam 2 Narrative: General: No acute distress, AO x1-2, chronically ill-appearing elderly lady HEENT: PERRLA, pupils bilaterally equal and reactive, pallors not present Chest: Normal vesicular breath sounds, no added sounds, equal good air entry bilaterally CVS: S1-S2 regular, no murmurs, no tachycardia, no gallops, no rubs Abdomen: Soft, nontender, no organomegaly, bowel sounds present Neuro: No focal deficits, no facial deformity, AO x3, power 5/5 in all limbs Urinary Catheter Management: Heath: Cath Placed During This Visit: yes Reason for Continuing Indwelling Catheter: Other Urinary Catheter Date of Insertion: 03/21/25 Urinary Catheter Time of Insertion: 21:30 Data 03/23/25 05:01 03/23/25 05:01 A&P Assessment and plan (1) Closed fracture of left superior pubic ramus: Continue to monitor and optimize for pain management and PT OT for fall and eventual rehab placement when medically stable (2) Closed fracture of left inferior pubic ramus: Continue to care and optimize pain management and PT OT evaluate for rehab when medically stable (3) Acetabulum fracture, left: Acetabular fracture - Continue with pain management - PT OT to further evaluate and for rehab placement when medically stable (4) Pelvic pain: Patient has left superior ramus pelvic fracture nondisplaced - Pain management with help and following up with physical therapy (5) Hip pain: Status post left acetabular fracture with pain Get pain management for care PT OT on the orthopedic direction (6) Hypertension: Continue home medication for blood pressure. Plan GI and DVT prophylaxis in place 03/22/2025 non-operable fracture pain mgmt and physical therapy will need rehab placement at [place] orthopedics consulted March 23, 2025 Chart reviewed. Patient is an 89-year-old lady who lives at home with her caregiver, past medical history of dementia, hypertension, hyperlipidemia, currently presenting to the hospital after a mechanical fall at home. She was found to have a left acetabular fracture. She has been evaluated by orthopedics. Nonoperative management is recommended. Toe-touch weightbearing and up with physical therapy for the next 12 weeks. Participated with PT and OT this morning. States that pain is currently controlled, however earlier today was noted to have confusion after being given morphine. Will attempt to use opiate sparing therapies including IV Tylenol, IV Toradol, tramadol every 8 hours as needed in the rotated manner. Discontinue morphine. Changed to oral hydrocodone 5/325 if pain is not improved after trying the above 3 medications first. Hemoglobin noted to drop to 8.4 today. Check FOBT. Patient has not yet had a bowel movement. Add lactulose. Check iron panel, TIBC, ferritin, B12 and folate levels. Systolic blood pressure at 109 today. Noted creatinine trending up to 1.3. Discontinue lisinopril 20 mg p.o. twice daily which is currently on her med list. Continue amlodipine 10 mg oral daily. Serially monitor serum creatinine and kidney function. Leukocytosis trending down, likely related to acute stress. Holding off on any antibiotics given no localizing signs or symptoms of infection at this time. PDMP PDMP Reviewed: Not Reviewed Attestations 2 Medical Necessity Statement*: Continued admission for PT OT, appropriate disposition planning. Pain management as noted Coding Level of Care Code Acute Code for Chg Fwd Moderate MDM includes number and complexity of problems actively addressed during encounter, amount and/or complexity of data reviewed/ordered and described risk of complication, morbidity or mortality of management as documented Diagnoses Closed fracture of left superior pubic ramus S32.512A Closed fracture of left inferior pubic ramus S32.592A Other closed fracture of left acetabulum, initial encounter S32.492A Encounter type: initial encounter Fracture type: closed Sublocation of acetabulum: other portion of acetabulum Pelvic pain R10.2 Hip pain M25.559 Hypertension I10
[2025-03-23 17:20] LABS: Glucose Point of Care 132 mg/dL (70-110)
[2025-03-23] MEDS: iron polysaccharide complex 150 mg Capsule PO (17:32)
[2025-03-23] MEDS: ATORVASTATIN 10 MG TABLET 20 MG PO (17:32)
[2025-03-23] MEDS: ketorolac 30 mg/mL INJ 15 MG IVP (17:36)
[2025-03-23] MEDS: acetaminophen 1,000 MG/100 ML PIGGYBACK 400 MG IV (18:21)
[2025-03-23] MEDS: donepezil 5 MG Tablet 10 MG PO (20:27)
[2025-03-23] MEDS: magnesium oxide 400 mg tablet PO (20:27)
[2025-03-23] MEDS: HYDROcodone-acetaminophen 5-325 mg Tablet 1 TAB PO (20:27)
[2025-03-24] MEDS: heparin 5,000 unit/mL INJ 1 mL 5000 UNIT SUBCUT ×2 (02:13→12:47)
[2025-03-24 03:52] VITALS: BP 118/70; PULSE 78; RESP 16; TEMP 36.7
[2025-03-24 05:30] LABS: Basophils % 0.4 %; Eosinophils # 0.1 10^3/uL (0.0-0.8); Eosinophils % 0.9 %; Hematocrit 27.2 % (36-47); Lymphocytes # 0.8 10^3/uL (0.8-4.8); Lymphocytes % 7.1 %; Mean Corpuscular HGB Conc 30.1 g/dL (30-55); Mean Corpuscular Hemoglobin 24.4 pg (27-33); Mean Platelet Volume 11.8 fL (7.4-10.4); Monocytes # 1.1 10^3/uL (0.2-0.9); Monocytes % 9.8 %; Neutrophils # 9.01 10^3/uL (1.8-7.7); Neutrophils % 81.3 %; Nucleated Red Blood Cells % 0 %; Platelet Count 257 10^3/cmm (157-399); Red Blood Count 3.36 10^6/uL (3.85-5.65); Red Cell Distribution Width 14.8 % (12.1-15.1); White Blood Count 11.09 10^3/uL (3.29-11.43)
[2025-03-24] MEDS: levothyroxine 88 mcg Tablet PO (05:36)
[2025-03-24 05:50] LABS: Alanine Aminotransferase 10 U/L (0-33); Albumin Level 2.7 g/dL (3.5-5.2); Alkaline Phosphatase 98 U/L (35-105); Anion Gap 16.5 (5-19); Aspartate Amino Transferase 9 U/L (0-32); Blood Urea Nitrogen 46 mg/dL (8-23); Calcium 9.9 mg/dL (8.5-10.5); Carbon Dioxide 30 mmol/L (22-29); Chloride 92 mmol/L (98-107); Ferritin 609 ng/mL (15-150); Globulin 3.4 g/dL (1.3-4.6); Glucose 99 mg/dL (65-115); Osmolality Calculated 290 mOsm/kg (285-295); Potassium 4.5 mmol/L (3.5-5.1); Sodium 134 mmol/L (136-145); Total Bilirubin 0.2 mg/dL (0.15-1.2); Total Protein 6.1 g/dL (6.6-8.7)
[2025-03-24 05:53] LABS: Iron 15 ug/dL (37-145); Percent Saturation 11.7 % (20-50); Total Iron Binding Capacity 128 mcg/dl; Unsaturated Iron Binding 113 ug/dL (112-347)
[2025-03-24 06:06] LABS: Vitamin B12 719 pg/mL (232-1245)
[2025-03-24 06:13] LABS: Folate Level 6.2 ng/mL (4.8-37.3)
[2025-03-24 07:26] VITALS: BP 143/80; PULSE 76; RESP 15; TEMP 36.4; O2SAT 99
[2025-03-24 08:22] VITALS: PULSE 81; RESP 18; O2SAT 99
[2025-03-24] MEDS: aspirin 81 mg EC Tablet PO (09:09)
[2025-03-24] MEDS: iron polysaccharide complex 150 mg Capsule PO ×2 (09:09→17:33)
[2025-03-24] MEDS: pantoprazole DR 40 mg Tablet PO (09:10)
[2025-03-24] MEDS: lactulose oral liq 20 gm/30 mL UDC 10 GM PO (09:10)
[2025-03-24] MEDS: HYDROcodone-acetaminophen 5-325 mg Tablet 1 TAB PO (09:10)
[2025-03-24] MEDS: amlodipine 10 mg Tablet PO (09:10)
[2025-03-24 12:00] VITALS: BP 98/59; PULSE 77; RESP 16; TEMP 36.4; O2SAT 96
--- NOTE | 2025-03-24 13:17 | P.PN_ITS ---
Subjective 2 Subjective: Patient is much more alert this morning. She is sitting up in bed, self- feeding. Reports that she is not in any pain. Medications: Reviewed: Yes Vitals/I&O/Wt Last Vital Signs Temp 97.6 F 03/24/25 12:00 Pulse 77 03/24/25 12:00 Resp 16 03/24/25 12:00 BP 98/59 03/24/25 12:00 Pulse Ox 96 03/24/25 12:00 O2 Del Method Nasal Cannula 03/24/25 12:00 O2 Flow Rate 4 03/24/25 08:22 03/23/25 03/24/25 03/24/25 22:59 06:59 14:59 Intake Total 220 / 460 100 / 100 Output Total 450 / 450 200 / 650 Balance -230 / 10 -200 / -190 100 / 100 Weight last 48 hrs Weight 40.597 kg Weight 38.555 kg Physical Exam 2 Narrative: General: No acute distress, AO x2, appears to be much more alert today. HEENT: PERRLA, pupils bilaterally equal and reactive, pallors not present Chest: Normal vesicular breath sounds, no added sounds, equal good air entry bilaterally CVS: S1-S2 regular, no murmurs, no tachycardia, no gallops, no rubs Abdomen: Soft, nontender, no organomegaly, bowel sounds present Neuro: No focal deficits, no facial deformity, AO x3, power 5/5 in all limbs Urinary Catheter Management: Heath: Cath Placed During This Visit: yes Reason for Continuing Indwelling Catheter: Required Immobilization for Trauma or Surgery or Anesthesia Urinary Catheter Date of Insertion: 03/21/25 Urinary Catheter Time of Insertion: 21:30 Data 03/24/25 04:44 03/24/25 04:44 A&P Assessment and plan (1) Closed fracture of left superior pubic ramus: Continue to monitor and optimize for pain management and PT OT for fall and eventual rehab placement when medically stable (2) Closed fracture of left inferior pubic ramus: Continue to care and optimize pain management and PT OT evaluate for rehab when medically stable (3) Acetabulum fracture, left: Acetabular fracture - Continue with pain management - PT OT to further evaluate and for rehab placement when medically stable (4) Pelvic pain: Patient has left superior ramus pelvic fracture nondisplaced - Pain management with help and following up with physical therapy (5) Hip pain: Status post left acetabular fracture with pain Get pain management for care PT OT on the orthopedic direction (6) Hypertension: Continue home medication for blood pressure. Plan GI and DVT prophylaxis in place 03/22/2025 non-operable fracture pain mgmt and physical therapy will need rehab placement at [place] orthopedics consulted March 23, 2025 Chart reviewed. Patient is an 89-year-old lady who lives at home with her caregiver, past medical history of dementia, hypertension, hyperlipidemia, currently presenting to the hospital after a mechanical fall at home. She was found to have a left acetabular fracture. She has been evaluated by orthopedics. Nonoperative management is recommended. Toe-touch weightbearing and up with physical therapy for the next 12 weeks. Participated with PT and OT this morning. States that pain is currently controlled, however earlier today was noted to have confusion after being given morphine. Will attempt to use opiate sparing therapies including IV Tylenol, IV Toradol, tramadol every 8 hours as needed in the rotated manner. Discontinue morphine. Changed to oral hydrocodone 5/325 if pain is not improved after trying the above 3 medications first. Hemoglobin noted to drop to 8.4 today. Check FOBT. Patient has not yet had a bowel movement. Add lactulose. Check iron panel, TIBC, ferritin, B12 and folate levels. Systolic blood pressure at 109 today. Noted creatinine trending up to 1.3. Discontinue lisinopril 20 mg p.o. twice daily which is currently on her med list. Continue amlodipine 10 mg oral daily. Serially monitor serum creatinine and kidney function. Leukocytosis trending down, likely related to acute stress. Holding off on any antibiotics given no localizing signs or symptoms of infection at this time. March 24, 2025 Hemoglobin at 8.2 today. Labs with low iron levels. Normal TIBC and ferritin. Start oral iron supplementation. Blood pressure is well-controlled off of lisinopril. Will continue to hold this medication as her creatinine has trended up to 1.8 today. Patient needs IV fluids for worsening creatinine today, however multiple IVs have attempted to be placed without success this afternoon. Discontinue Toradol. Encouraged oral hydration, liberal oral intake of fluids. Fecal occult blood testing is pending. Will need to trend creatinine and ensure downtrend prior to discharge home. Discontinue Heath catheter. PDMP PDMP Reviewed: Not Reviewed Attestations 2 Medical Necessity Statement*: KATI with worsening creatinine at 1.8 today. Coding Level of Care Code Acute Code for Chg Fwd Diagnoses Closed fracture of left superior pubic ramus S32.512A Closed fracture of left inferior pubic ramus S32.592A Other closed fracture of left acetabulum, initial encounter S32.492A Encounter type: initial encounter Fracture type: closed Sublocation of acetabulum: other portion of acetabulum Pelvic pain R10.2 Hip pain M25.559 Hypertension I10
[2025-03-24 15:26] VITALS: BP 96/66; PULSE 83; RESP 15; TEMP 36.7; O2SAT 98
--- NOTE | 2025-03-24 16:24 | PC.NURSE ---
pt pulled out iv on noc, no iv access currently, dr. caldwell aware. wants pt to po hydrate
[2025-03-24] MEDS: ATORVASTATIN 10 MG TABLET 20 MG PO (17:33)
[2025-03-24 20:00] VITALS: BP 113/63; PULSE 78; RESP 16; TEMP 36.6; O2SAT 96
[2025-03-24] MEDS: magnesium oxide 400 mg tablet PO (20:02)
[2025-03-24] MEDS: donepezil 5 MG Tablet 10 MG PO (20:02)
[2025-03-24] MEDS: sodium chloride 0.9% 1,000 ML 50 ML IV (20:49)
[2025-03-25] VITALS (7 sets, daily range): BP systolic 107–157; BP diastolic 56–74; PULSE 66–93; RESP 16–18; TEMP 36.4–36.7; O2SAT 93–97
[2025-03-25] MEDS: heparin 5,000 unit/mL INJ 1 mL 5000 UNIT SUBCUT (01:58)
[2025-03-25] MEDS: levothyroxine 88 mcg Tablet PO (06:03)
[2025-03-25 06:30] LABS: Basophils % 0.3 %; Eosinophils % 0.4 %; Hematocrit 27.1 % (36-47); Lymphocytes # 0.5 10^3/uL (0.8-4.8); Lymphocytes % 5.1 %; Mean Corpuscular HGB Conc 29.9 g/dL (30-55); Mean Corpuscular Hemoglobin 23.8 pg (27-33); Mean Corpuscular Volume 79.7 fl (85-98); Mean Platelet Volume 12.1 fL (7.4-10.4); Monocytes # 0.8 10^3/uL (0.2-0.9); Monocytes % 7.6 %; Neutrophils # 9.04 10^3/uL (1.8-7.7); Neutrophils % 86.2 %; Nucleated Red Blood Cells % 0 %; Platelet Count 255 10^3/cmm (157-399); Red Cell Distribution Width 14.9 % (12.1-15.1); White Blood Count 10.49 10^3/uL (3.29-11.43)
[2025-03-25 06:48] LABS: Alanine Aminotransferase 6 U/L (0-33); Albumin Level 2.6 g/dL (3.5-5.2); Alkaline Phosphatase 116 U/L (35-105); Anion Gap 13.5 (5-19); Aspartate Amino Transferase 18 U/L (0-32); Blood Urea Nitrogen 45 mg/dL (8-23); Calcium 9.9 mg/dL (8.5-10.5); Carbon Dioxide 33 mmol/L (22-29); Chloride 97 mmol/L (98-107); Globulin 3.5 g/dL (1.3-4.6); Glucose 125 mg/dL (65-115); Osmolality Calculated 301 mOsm/kg (285-295); Potassium 4.5 mmol/L (3.5-5.1); Sodium 139 mmol/L (136-145); Total Bilirubin 0.2 mg/dL (0.15-1.2); Total Protein 6.1 g/dL (6.6-8.7)
[2025-03-25] MEDS: amlodipine 10 mg Tablet PO (09:13)
[2025-03-25] MEDS: lactulose oral liq 20 gm/30 mL UDC 10 GM PO (09:13)
[2025-03-25] MEDS: aspirin 81 mg EC Tablet PO (09:13)
[2025-03-25] MEDS: pantoprazole DR 40 mg Tablet PO (09:13)
[2025-03-25] MEDS: iron polysaccharide complex 150 mg Capsule PO ×2 (09:14→18:05)
[2025-03-25 09:30] LABS: SARS Covid-2 Antigen Negative (Negative)
--- NOTE | 2025-03-25 09:30 | P.DS_ITS ---
Discharge Providers Date of Admission: 03/21/25 22:41 Date of Discharge: March 25, 2025 Attending Provider at Admission: Tamiko Galaviz MD Attending Provider at Discharge: Lakeisha Nicole MD Diagnoses at Discharge Discharge Diagnosis (1) Closed fracture of left superior pubic ramus: Status: Acute (2) Closed fracture of left inferior pubic ramus: Status: Acute (3) Acetabulum fracture, left: Status: Acute Qualifiers: Encounter type: initial encounter Fracture type: closed Sublocation of acetabulum: other portion of acetabulum Qualified Code(s): S32.492A - Other specified fracture of left acetabulum, initial encounter for closed fracture (4) Pelvic pain: Status: Acute (5) Hip pain: Status: Acute (6) Hypertension: Status: Acute Reason for Visit Reason for Visit: head lac s/p fall Hospital Course Hospital Course 89-year-old lady who lives at home with her caregiver, past medical history of dementia, hypertension, hyperlipidemia, currently presented to the hospital after a mechanical fall at home. She was found to have a left acetabular fracture. She was evaluated by orthopedics. Nonoperative management was recommended. Toe-touch weightbearing and up with physical therapy for the next 12 weeks. She participated with PT and OT. She had some confusion following morphine administartion therefore thiswas discontinued. She is on pain management with oral hydrocodone-APAP, toradol and did well with regards to pain. her Hb noted to be dropped from 10 on admission to 8.1. No hematemesis or melena during this admission. Pelvis CT upon admission did not show any obvious bleeding. Iron panel revealed low iron levels therefore she was started on oral iron supplementation. Her TIBC and ferritin levels were within normal range. Hospital course was complicated by development of KATI with creatinine peaking at 1.8. Was improved with hydration down to 1.3 at the time of discharge. Patient had leukocytosis upon admission, likely reactive leukocytosis. This has resolved without any directed antibiotic intervention, WBC count now at 10.4 without other localizing signs or symptoms of infection. Physical Exam Narrative: General: No acute distress, AO x3 HEENT: PERRLA, pupils bilaterally equal and reactive, pallors not present Chest: Normal vesicular breath sounds, no added sounds, equal good air entry bilaterally CVS: S1-S2 regular, no murmurs, no tachycardia, no gallops, no rubs Abdomen: Soft, nontender, no organomegaly, bowel sounds present Neuro: No focal deficits, no facial deformity, AO x3 Urinary Catheter Management: Heath: Cath Placed During This Visit: yes, but has since been removed by the nurse Reason for Continuing Indwelling Catheter: Chronic Indwelling Urinary Catheter on Admission Urinary Catheter Date of Insertion: 03/21/25 Urinary Catheter Time of Insertion: 21:30 Date Urinary Catheter Removed: 03/24/25 Time Urinary Catheter Discontinued: 17:00 Discharge Data Studies Completed and Pending Completed Studies During Hospitalization Category Date Time Status CT bony pelvis [id number] Stat Cat Scan 03/21/25 20:[address] cervical spin wo con* [id number] Stat Cat Scan 03/21/25 17:[address] head wo con* [id number] Stat Cat Scan 03/21/25 17:26 Completed CXRP [XR chest 1V portable [id number]] Stat Exams 03/25/25 12:51 Completed XR chest 1V portable [id number] Stat Exams 03/22/25 04:03 Completed XR hip LT 2-3V wo/w pel* [id number] Stat Exams 03/21/25 17:36 Completed XR ribs LT mn 3V w CXR1V [id number] Stat Exams 03/21/25 17:34 Completed XR shoulder LT min 2V* [id number] Stat Exams 03/21/25 17:36 Completed Pending at discharge Category Date Time Status Fecal Occult Blood [Immunochemical Fecal OCB] Routine Lab 03/23/25 15:43 Uncollected SARS Covid-2 Antigen Routine Lab 03/24/25 05:57 Ordered Radiology Impressions Cervical Spine CT 03/21/25 17:26 IMPRESSION: 1. No acute trauma to the cervical spine is identified. 2. Incidental notation of biconcave compression deformity of T3 with 75% height loss centrally, age-indeterminate. Head CT 03/21/25 17:26 IMPRESSION: No acute intracranial abnormality. Ribs X-Ray 03/21/25 17:34 IMPRESSION: 1. No acute infiltrate. 2. No rib fracture is identified. Hip/Pelvis X-Ray 03/21/25 17:36 IMPRESSION: No acute fracture is identified. Shoulder X-Ray 03/21/25 17:36 IMPRESSION: 1. No evidence of shoulder fracture or dislocation. 2. Wedging compression deformities of the thoracic spine of uncertain age. Pelvis CT 03/21/25 20:13 IMPRESSION: Left acetabular fracture also with fractures of the left superior and inferior pubic rami Laboratory Results WBC 10.49 10^3/uL (3.29-11.43) 03/25/25 05:33 RBC 3.40 10^6/uL (3.85-5.65) L 03/25/25 05:33 Hgb 8.10 g/dL (11.27-16.99) L 03/25/25 05:33 Hct 27.1 % (36-47) L 03/25/25 05:33 MCV 79.7 fl (85-98) L 03/25/25 05:33 MCH 23.8 pg (27-33) L 03/25/25 05:33 MCHC 29.9 g/dL (30-55) L 03/25/25 05:33 RDW 14.9 % (12.1-15.1) 03/25/25 05:33 Plt Count 255 10^3/cmm (157-399) 03/25/25 05:33 MPV 12.1 fL (7.4-10.4) H 03/25/25 05:33 Neut % (Auto) 86.2 % 03/25/25 05:33 Lymph % (Auto) 5.1 % 03/25/25 05:33 [place] % (Auto) 7.6 % 03/25/25 05:33 Eos % (Auto) 0.4 % 03/25/25 05:33 Baso % (Auto) 0.3 % 03/25/25 05:33 Neut # (Auto) 9.04 10^3/uL (1.8-7.7) H 03/25/25 05:33 Lymph # (Auto) 0.5 10^3/uL (0.8-4.8) L 03/25/25 05:33 [place] # (Auto) 0.8 10^3/uL (0.2-0.9) 03/25/25 05:33 Eos # (Auto) 0.0 10^3/uL (0.0-0.8) 03/25/25 05:33 Baso # (Auto) 0.0 10^3/uL (0.0-0.1) 03/25/25 05:33 Nucleated RBC % (auto) 0 % 03/25/25 05:33 Nucleated RBCs # 0.0 /100WBC 03/25/25 05:33 D-Dimer 2.55 ug/mLFEU (0-0.59) H 03/25/25 13:14 Sodium 139 mmol/L (136-145) 03/25/25 05:33 Potassium 4.5 mmol/L (3.5-5.1) 03/25/25 05:33 Chloride 97 mmol/L (98-107) L 03/25/25 05:33 Carbon Dioxide 33 mmol/L (22-29) H 03/25/25 05:33 Anion Gap 13.5 (5-19) 03/25/25 05:33 BUN 45 mg/dL (8-23) H 03/25/25 05:33 Creatinine 1.3 mg/dL (0.5-0.9) H 03/25/25 05:33 GFR Calculation Not Reportable 03/25/25 05:33 Glucose 125 mg/dL (65-115) H 03/25/25 05:33 POC Glucose 132 mg/dL (70-110) H 03/23/25 17:17 Calculated Osmolality 301 mOsm/kg (285-295) H 03/25/25 05:33 Calcium 9.9 mg/dL (8.5-10.5) 03/25/25 05:33 Magnesium 2.0 mg/dL (1.7-2.3) 03/23/25 05:01 Iron 15 ug/dL (37-145) L 03/24/25 04:44 TIBC 128 mcg/dl 03/24/25 04:44 % Saturation 11.7 % (20-50) L 03/24/25 04:44 Unsat Iron Binding 113 ug/dL (112-347) 03/24/25 04:44 Ferritin 609 ng/mL (15-150) H 03/24/25 04:44 Total Bilirubin 0.2 mg/dL (0.15-1.2) 03/25/25 05:33 AST 18 U/L (0-32) 03/25/25 05:33 ALT 6 U/L (0-33) 03/25/25 05:33 Alkaline Phosphatase 116 U/L (35-105) H 03/25/25 05:33 Total Protein 6.1 g/dL (6.6-8.7) L 03/25/25 05:33 Albumin 2.6 g/dL (3.5-5.2) L 03/25/25 05:33 Globulin 3.5 g/dL (1.3-4.6) 03/25/25 05:33 Vitamin B12 719 pg/mL (232-1245) 03/24/25 04:44 Folate 6.2 ng/mL (4.8-37.3) 03/24/25 04:44 Procalcitonin 0.32 ng/mL (0-0.5) 03/22/25 14:52 TSH 1.93 uIU/mL (0.27-4.20) 03/22/25 14:52 Urine Color Yellow (Yellow) 03/21/25 20:39 Urine Appearance Clear (CLEAR) 03/21/25 20:39 Urine pH 6.0 (5-7) 03/21/25 20:39 Ur Specific [place] 1.022 (1.005-1.030) 03/21/25 20:39 Urine Protein 1+ (Negative) A 03/21/25 20:39 Urine Glucose (UA) Negative (Normal) 03/21/25 20:39 Urine Ketones Trace (Negative) 03/21/25 20:39 Urine Blood Negative (Negative) 03/21/25 20:39 Urine Nitrate Negative (Negative) 03/21/25 20:39 Urine Bilirubin Negative (Negative) 03/21/25 20:39 Urine Urobilinogen 1.0 mg/dL (Negative) 03/21/25 20:39 Ur Leukocyte Esterase Negative (Negative) 03/21/25 20:39 Urine RBC 0-2 /hpf (0-2) 03/21/25 20:39 Urine WBC 0-5 /hpf (0-5) 03/21/25 20:39 Ur Squamous Epith Cells 0-5 /hpf (0-5) 03/21/25 20:39 Amorphous Sediment Not Reportable 03/21/25 20:39 Urine Bacteria None seen /hpf (NONE) 03/21/25 20:39 Hyaline Casts 6.20 /lpf 03/21/25 20:39 SARS-CoV-2 Ag (Rapid) Negative (Negative) 03/25/25 08:43 Vitals Last Vital Signs Temp 97.6 F 03/25/25 11:58 Pulse 77 06/25/25 11:58 Resp 18 03/25/25 11:58 BP 145/64 03/25/25 11:58 Pulse Ox 96 03/25/25 11:58 O2 Del Method Nasal Cannula 03/25/25 11:58 O2 Flow Rate 3 03/25/25 10:00 Discharge Plan Discharge Patient Disposition: Xfer SNF Condition: Stable Prescriptions: New polysaccharide iron complex [Ferrex 150] 150 mg iron Capsule 150 mg PO BIDWM 30 Days Qty: 30 0RF tramadol 50 mg Tablet 50 mg PO Q8H PRN (Reason: Moderate Pain) 5 Days Qty: 15 0RF lactulose 10 gram/15 mL Solution 10 g PO DAILY PRN (Reason: constipation) 30 Days Qty: 30 0RF Continued potassium chloride 10 mEq Capsule, Extended Release 10 meq PO DAILY atorvastatin 20 mg Tablet 20 mg PO QPM trazodone 50 mg Tablet 50 mg PO BEDTIME PRN (Reason: Insomnia) polyethylene glycol 3350 [Miralax] 17 gram Powder In Packet 17 g PO DAILY PRN (Reason: Constipation) donepezil 10 mg Tablet 10 mg PO BEDTIME levothyroxine 88 mcg Tablet 88 mcg PO QAM amlodipine 10 mg Tablet 10 mg PO DAILY sertraline 25 mg Tablet 25 mg PO DAILY omeprazole 20 mg Capsule,Delayed Release(Dr/Ec) 20 mg PO DAILY aspirin 81 mg Tablet 81 mg PO DAILY mirabegron [Myrbetriq] 25 mg Tablet Extended Release 24 Hr 25 mg PO BEDTIME magnesium oxide 400 mg magnesium Tablet 400 mg PO BEDTIME Changed hydralazine 50 mg Tablet 25 mg PO TID PRN (Reason: prn) 30 Days Qty: 30 0RF Rx Instructions: Do not take if SBP<100 or DBP<60 Discontinued clonidine 0.2 mg/24 hr patch weekly 1 patch transdermal Q7D lisinopril 20 mg Tablet 20 mg PO BID Referrals: [facility] [Outside] Papa Haynes DO [Physician, Orthopedics] - 04/07/25 8:15 am Referral Note: Caleb Lares [Referring, Family Practice] - 03/27/25 8:00 am Patient Instructions: Lactulose (By mouth), Tramadol (By mouth), Pelvic Fracture (GEN), Opioid Safety Activity Restrictions/Additional Instructions: Toe-touch weightbearing left lower extremity Follow-up orthopedic clinic in 2 weeks. Discharge Attestations Time Spent in Discharge Care*: greater than 30 min Quality Metrics Clinical Quality Measures [ No reported AMI, CVA or VTE this stay] Coding Level of Care Code Acute Code for Chg Fwd Diagnoses Closed fracture of left superior pubic ramus S32.512A Closed fracture of left inferior pubic ramus S32.592A Other closed fracture of left acetabulum, initial encounter S32.492A Encounter type: initial encounter Fracture type: closed Sublocation of acetabulum: other portion of acetabulum Pelvic pain R10.2 Hip pain M25.559 Hypertension I10
--- NOTE | 2025-03-25 09:38 | PC.SOCIAL ---
IMM Update Pg. 2 of IMM updated and copy provided at bedside.
[2025-03-25] MEDS: HYDROcodone-acetaminophen 5-325 mg Tablet 1 TAB PO (11:30)
--- NOTE | 2025-03-25 12:51 | XR_ITS ---
WS: [id number] Exam: XR chest 1V portable [id number] Date/Time of Exam: 03/25/2025 12:53 PM Reason For Exam: hemoptysis Exam: XR chest 1V portable [id number] Date/Time of Exam: 03/25/2025 12:53 PM Reason For Exam: hemoptysis Comparison 03/22/2025. Lungs are fully expanded. Prominent RIGHT pulmonary hilum noted. There may also be mild widening of the superior mediastinum on the RIGHT. No pleural effusions. Bony structures are intact. Lower abdominal aortic graft is noted. XR/XR chest 1V portable [id number] IMPRESSION: 1. Prominent RIGHT pulmonary hilum. This may be due to rotation however underly ing infiltrate or mass could have the same appearance. There is also well widen ing the superior mediastinum on the RIGHT. Mediastinal mass or lymphadenopathy not excluded. This could also represent substernal goiter. Overall, no change s yury last study.
[2025-03-25 13:38] LABS: D Dimer 2.55 ug/mLFEU (0-0.59)
--- NOTE | 2025-03-25 14:38 | CTR_ITS ---
PROCEDURE INFORMATION: Exam: CTA Chest With Contrast Exam date and time: 03/25/2025 6:37 PM Age: 89 years old Clinical indication: Injury or trauma; Fall; Abdominal wall; Blunt trauma (contusions or hematomas); Additional info: Assess for pe, assess for pe, abdominal bleeding, recent trauma with TECHNIQUE: Imaging protocol: Computed tomographic angiography of the chest with contrast. Exam focused on the arteries. 3D rendering (Not supervised by radiologist): MIP and/or 3D reconstructed images were created by the technologist. Radiation optimization: All CT scans at this facility use at least one of these dose optimization techniques: automated exposure control; mA and/or kV adjustment per patient size (includes targeted exams where dose is matched to clinical indication); or iterative reconstruction. Contrast material: OMNIPAQUE 350; Contrast volume: 100 ml; Contrast route: INTRAVENOUS (IV); COMPARISON: CR XR chest 1V portable [id number] 03/25/2025 12:57 PM RADIATION DOSE METRICS: Total DLP (mGy-cm): 528.35 FINDINGS: Pulmonary arteries: Normal. No pulmonary emboli. Aorta: Unremarkable. No aortic aneurysm. No aortic dissection. Other arteries: Calcified plaque in the bilateral carotid bulbs. Thyroid: Atrophic thyroid gland versus previous resection. Lungs: Centrilobular emphysema. Right middle lobe calcified granuloma. Mild dependent atelectasis in the lower lobes. Approximate 3.8 x 3.4 x 4.7 cm mass in the suprahilar right upper lobe with extension into the right hilum. There is obstruction and dilatation of the right upper lobe bronchi in the hilum and suprahilar region. Pleural spaces: Unremarkable. No pneumothorax. No pleural effusion. Heart: Unremarkable. No cardiomegaly. No pericardial effusion. Coronary arteries: Coronary artery calcifications. Lymph nodes: Unremarkable. No enlarged lymph nodes. Bones/joints: Diffuse demineralization of the bones. Kyphosis and degenerative changes. T3, T5, T6, T8, T11, and T12 compression fractures. Displaced comminuted distal left clavicle fracture. Old bilateral rib fractures. No acute rib fracture. Soft tissues: Unremarkable. non-emergent PET/CT or tissue sampling.(Reference: Ajith) 3. Prominent middle mediastinal lymph node. Metastatic disease is not excluded. 4. Comminuted displaced distal left clavicle fracture. 5. Multiple age indeterminate thoracic compression fractures as listed above, most likely chronic. REFERENCES: Ajith Brown et al. Guidelines for Management of Incidental Pulmonary Nodules Detected on CT Images: From the Fleischner Society 2017. Radiology. 2017;284(1):228-243. PROCEDURE INFORMATION: Exam: CT Abdomen And Pelvis With Contrast Exam date and time: 03/25/2025 6:37 PM Age: 89 years old Clinical indication: Injury or trauma; Fall; Abdominal wall; Blunt trauma (contusions or hematomas); Additional info: Assess for pe, assess for pe, abdominal bleeding, recent trauma with TECHNIQUE: Imaging protocol: Computed tomography of the abdomen and pelvis with contrast. Radiation optimization: All CT scans at this facility use at least one of these dose optimization techniques: automated exposure control; mA and/or kV adjustment per patient size (includes targeted exams where dose is matched to clinical indication); or iterative reconstruction. Contrast material: OMNIPAQUE 350; Contrast volume: 100 ml; Contrast route: INTRAVENOUS (IV); COMPARISON: CT bony pelvis [id number] 03/21/2025 8:44 PM RADIATION DOSE METRICS: Total DLP (mGy-cm): 528.35 FINDINGS: Liver: Normal. No mass. Gallbladder and biliary ducts: Cholecystectomy. The bile ducts are normal. Pancreas: Normal. No ductal dilation. Spleen: Calcified granulomas in the spleen. Adrenal glands: Mild adrenal hyperplasia. Kidneys and ureters: Small renal cysts, Hounsfield units less than 20. Additional hypodense lesions in both kidneys are too small to characterize and are most likely cysts. No follow-up imaging is recommended. No calculus or hydronephrosis. Stomach and bowel: Diverticulosis of the colon. No diverticulitis. The stomach and small bowel are unremarkable. No wall thickening or obstruction. Appendix: The appendix is visualized and is normal. Intraperitoneal space: Unremarkable. No free air. No significant fluid collection. 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 Patent aorto bi iliac endograft. No evidence of endograft leak. Lymph nodes: Unremarkable. No enlarged lymph nodes. Urinary bladder: Unremarkable as visualized. Reproductive: Hysterectomy. Possible small retained ovaries. Bones/joints: Middle plate with compression screw in the proximal right femur. Intramedullary remy with compression screw in the proximal left femur. Old bilateral intertrochanteric femur fractures. Scoliosis and degenerative changes of the spine. Old right L2-L4 transverse process fractures. Old insufficiency fractures in the sacrum with sacral cement. Stable fractures in the inferior left pubic ramus and left acetabulum. No lumbar compression fracture. Soft tissues: Mild body wall edema. CT/CT angio chest w abd pel w con IMPRESSION: 1. No evidence of pulmonary embolus. 2. 4.7 cm right upper lobe suprahilar mass with hilar extension and bronchial obstruction. This is highly suspicious of malignancy. Consider IMPRESSION: 1. No acute findings in the abdomen or pelvis. 2. Stable fractures in the left acetabulum and inferior left pubic ramus. 3. 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 COMMENTS: Consistent with the [place] [employer]'s Incidental Findings Committee white paper (J Am Garcia Radiol 2018): Any incidental renal lesion less than 1 cm or classified as too small to characterize, or any incidental cystic renal lesion characterized as simple-appearing, is likely benign. No follow-up imaging is recommended for these lesions per consensus recommendations based on imaging criteria.
--- NOTE | 2025-03-25 16:00 | PC.OT ---
OT treatment held due to scheduled patient d/c today
[2025-03-25] MEDS: ATORVASTATIN 10 MG TABLET 20 MG PO (18:05)
[2025-03-25] MEDS: iohexol 350 mg/mL 500 mL Btl (per mL) IV (18:49)
[2025-03-25] MEDS: donepezil 5 MG Tablet 10 MG PO (20:39)
[2025-03-25] MEDS: magnesium oxide 400 mg tablet PO (20:39)
[2025-03-26] VITALS (8 sets, daily range): BP systolic 137–164; BP diastolic 73–84; PULSE 70–92; RESP 16–18; TEMP 36.6–36.8; O2SAT 91–98
[2025-03-26] MEDS: sodium chloride 0.9% 1,000 ML 50 ML IV (00:52)
[2025-03-26] MEDS: TRAMadol 50 mg Tablet PO ×2 (03:47→14:35)
[2025-03-26] MEDS: levothyroxine 88 mcg Tablet PO (06:02)
[2025-03-26] MEDS: lactulose oral liq 20 gm/30 mL UDC 10 GM PO (08:05)
[2025-03-26] MEDS: amlodipine 10 mg Tablet PO (08:06)
[2025-03-26] MEDS: pantoprazole DR 40 mg Tablet PO (08:06)
[2025-03-26] MEDS: aspirin 81 mg EC Tablet PO (08:06)
[2025-03-26] MEDS: iron polysaccharide complex 150 mg Capsule PO ×2 (08:06→17:23)
[2025-03-26 09:35] LABS: Basophils % 0.4 %; Eosinophils # 0.1 10^3/uL (0.0-0.8); Eosinophils % 0.5 %; Hematocrit 31.4 % (36-47); Lymphocytes # 0.7 10^3/uL (0.8-4.8); Lymphocytes % 7.1 %; Mean Corpuscular Hemoglobin 23.7 pg (27-33); Mean Corpuscular Volume 84.6 fl (85-98); Mean Platelet Volume 11.5 fL (7.4-10.4); Monocytes % 10.5 %; Neutrophils # 7.86 10^3/uL (1.8-7.7); Neutrophils % 80.9 %; Nucleated Red Blood Cells % 0 %; Platelet Count 272 10^3/cmm (157-399); Red Blood Count 3.71 10^6/uL (3.85-5.65); Red Cell Distribution Width 15.1 % (12.1-15.1); White Blood Count 9.72 10^3/uL (3.29-11.43)
[2025-03-26 09:57] LABS: Alanine Aminotransferase 10 U/L (0-33); Albumin Level 2.4 g/dL (3.5-5.2); Alkaline Phosphatase 131 U/L (35-105); Anion Gap 16.1 (5-19); Aspartate Amino Transferase 12 U/L (0-32); Blood Urea Nitrogen 25 mg/dL (8-23); Calcium 10.1 mg/dL (8.5-10.5); Carbon Dioxide 27 mmol/L (22-29); Chloride 97 mmol/L (98-107); Creatinine Clr Calc Pharmacy 33.7841; Globulin 4.3 g/dL (1.3-4.6); Glucose 127 mg/dL (65-115); Osmolality Calculated 288 mOsm/kg (285-295); Potassium 4.1 mmol/L (3.5-5.1); Sodium 136 mmol/L (136-145); Total Bilirubin 0.3 mg/dL (0.15-1.2); Total Protein 6.7 g/dL (6.6-8.7)
[2025-03-26] MEDS: oxymetazoline 0.05% Nasal Spray 15 mL 2 SPRAY NOSTRIL-B (11:55)
[2025-03-26] MEDS: guaiFENesin-dextromethorphan UDC 10 mL 5 ML PO ×4 (11:55→23:19)
[2025-03-26] MEDS: benzonatate 100 mg Capsule PO ×2 (14:36→20:19)
--- NOTE | 2025-03-26 15:49 | PM.PN ---
Subjective Subjective: Patient having minor episode of hemoptysis today. Estimated quantity 80 teaspoon. Discontinued heparin and aspirin. CT findings discussed with the patient and family. Medications: Reviewed: Yes Vitals/I&O/Wt Last Vital Signs Temp 97.9 F 03/26/25 11:30 Pulse 76 03/26/25 11:30 Resp 18 03/26/25 11:30 BP 164/73 03/26/25 11:30 Pulse Ox 97 03/26/25 11:30 O2 Del Method Nasal Cannula 03/26/25 11:30 O2 Flow Rate 2 03/26/25 10:00 03/26/25 03/26/25 03/26/25 06:59 14:59 22:59 Intake Total 240 / 1900 1230 / 1230 Balance 240 / 1898 1230 / 1230 Weight last 48 hrs Weight 41.816 kg Weight 40.625 kg Physical Exam Narrative: General: No acute distress, AO x3 HEENT: PERRLA, pupils bilaterally equal and reactive, pallors not present Chest: Normal vesicular breath sounds, no added sounds, equal good air entry bilaterally CVS: S1-S2 regular, no murmurs, no tachycardia, no gallops, no rubs Abdomen: Soft, nontender, no organomegaly, bowel sounds present Neuro: No focal deficits, no facial deformity, AO x3 Urinary Catheter Management: Heath: Cath Placed During This Visit: yes, but has since been removed by the nurse Reason for Continuing Indwelling Catheter: Other Urinary Catheter Date of Insertion: 03/21/25 Urinary Catheter Time of Insertion: 21:30 Date Urinary Catheter Removed: 03/24/25 Time Urinary Catheter Discontinued: 17:00 Data 03/26/25 09:25 03/26/25 09:25 A&P Assessment and plan (1) Closed fracture of left superior pubic ramus: Continue to monitor and optimize for pain management and PT OT for fall and eventual rehab placement when medically stable (2) Closed fracture of left inferior pubic ramus: Continue to care and optimize pain management and PT OT evaluate for rehab when medically stable (3) Acetabulum fracture, left: Acetabular fracture - Continue with pain management - PT OT to further evaluate and for rehab placement when medically stable (4) Pelvic pain: Patient has left superior ramus pelvic fracture nondisplaced - Pain management with help and following up with physical therapy (5) Hip pain: Status post left acetabular fracture with pain Get pain management for care PT OT on the orthopedic direction (6) Hypertension: Continue home medication for blood pressure. Plan GI and DVT prophylaxis in place 03/22/2025 non-operable fracture pain mgmt and physical therapy will need rehab placement at CT orthopedics consulted March 23, 2025 Chart reviewed. Patient is an 89-year-old lady who lives at home with her caregiver, past medical history of dementia, hypertension, hyperlipidemia, currently presenting to the hospital after a mechanical fall at home. She was found to have a left acetabular fracture. She has been evaluated by orthopedics. Nonoperative management is recommended. Toe-touch weightbearing and up with physical therapy for the next 12 weeks. Participated with PT and OT this morning. States that pain is currently controlled, however earlier today was noted to have confusion after being given morphine. Will attempt to use opiate sparing therapies including IV Tylenol, IV Toradol, tramadol every 8 hours as needed in the rotated manner. Discontinue morphine. Changed to oral hydrocodone 5/325 if pain is not improved after trying the above 3 medications first. Hemoglobin noted to drop to 8.4 today. Check FOBT. Patient has not yet had a bowel movement. Add lactulose. Check iron panel, TIBC, ferritin, B12 and folate levels. Systolic blood pressure at 109 today. Noted creatinine trending up to 1.3. Discontinue lisinopril 20 mg p.o. twice daily which is currently on her med list. Continue amlodipine 10 mg oral daily. Serially monitor serum creatinine and kidney function. Leukocytosis trending down, likely related to acute stress. Holding off on any antibiotics given no localizing signs or symptoms of infection at this time. March 24, 2025 Hemoglobin at 8.2 today. Labs with low iron levels. Normal TIBC and ferritin. Start oral iron supplementation. Blood pressure is well-controlled off of lisinopril. Will continue to hold this medication as her creatinine has trended up to 1.8 today. Patient needs IV fluids for worsening creatinine today, however multiple IVs have attempted to be placed without success this afternoon. Discontinue Toradol. Encouraged oral hydration, liberal oral intake of fluids. Fecal occult blood testing is pending. Will need to trend creatinine and ensure downtrend prior to discharge home. Discontinue Heath catheter. March 26, 2025 Patient had a mild episode of hemoptysis this morning. Few blood-streaked clots were noted. Humidified oxygen added. No nasal bleeding encountered. Added cough suppressants including Tessalon and Robitussin. CTA of the chest was completed which showed a 4.7 cm right upper lobe suprahilar mass with hilar extension and bronchial obstruction. This is highly suspicious for malignancy. Possibly this may be the cause of her hemoptysis additionally. Discussed with patient's family that with myelophthisis we can likely continue to closely monitor with discontinuation of antiplatelets and anticoagulation versus consider transfer to a higher center should hemoptysis worsen with large volume. Additionally we do not have a research engineer marine equipment available to be able to undertake EBUS and any kind of biopsy for the lung mass that has been newly discovered. Patient and family state that given her advanced age and comorbidities, patient would not like any further diagnostics with regard to this new lung mass. Patient understands that this may be reflective of an underlying lung malignancy however states that she does not wish to explore this any further. We will closely monitor her for any worsening of hemoptysis today. If patient remains stable with discontinuation of antiplatelets and anticoagulation anticipate discharge to SNF tomorrow. Hemoglobin is currently slightly improved at 8.8. No endoleak was encountered on CT of the abdomen. No active bleeding noted, amount of hemoptysis would not explain the anemia. KATI is resolved with creatinine at 0.7. Discontinue IV fluids. PDMP PDMP Reviewed: Last Reviewed 03/25/25 09:01 EDT by Lakeisha Nicole MD Attestations Medical Necessity Statement*: Hemoptysis today, close monitoring, goals of care discussion with patient and family Coding Level of Care Code Acute Code for Chg Fwd Diagnoses Closed fracture of left superior pubic ramus S32.512A Closed fracture of left inferior pubic ramus S32.592A Other closed fracture of left acetabulum, initial encounter S32.492A Encounter type: initial encounter Fracture type: closed Sublocation of acetabulum: other portion of acetabulum Pelvic pain R10.2 Hip pain M25.559 Hypertension I10
[2025-03-26] MEDS: HYDROcodone-acetaminophen 5-325 mg Tablet 1 TAB PO (17:23)
[2025-03-26] MEDS: ATORVASTATIN 10 MG TABLET 20 MG PO (17:24)
[2025-03-26] MEDS: donepezil 5 MG Tablet 10 MG PO (20:19)
[2025-03-26] MEDS: magnesium oxide 400 mg tablet PO (20:20)
[2025-03-27 00:53] VITALS: BP 133/72; PULSE 92; RESP 16; TEMP 36.8; O2SAT 97
[2025-03-27] MEDS: TRAMadol 50 mg Tablet PO ×2 (03:21→12:26)
[2025-03-27] MEDS: guaiFENesin-dextromethorphan UDC 10 mL 5 ML PO ×3 (03:23→11:08)
[2025-03-27 05:23] VITALS: BP 156/74; PULSE 73; RESP 16; TEMP 36.7; O2SAT 94
[2025-03-27] MEDS: levothyroxine 88 mcg Tablet PO (06:08)
[2025-03-27 06:37] LABS: Basophils % 0.5 %; Eosinophils # 0.1 10^3/uL (0.0-0.8); Eosinophils % 1.3 %; Lymphocytes # 0.7 10^3/uL (0.8-4.8); Lymphocytes % 8.4 %; Mean Corpuscular HGB Conc 29.6 g/dL (30-55); Mean Corpuscular Hemoglobin 23.9 pg (27-33); Mean Corpuscular Volume 80.6 fl (85-98); Mean Platelet Volume 12.2 fL (7.4-10.4); Monocytes % 11.9 %; Neutrophils # 6.62 10^3/uL (1.8-7.7); Neutrophils % 76.9 %; Nucleated Red Blood Cells % 0 %; Platelet Count 220 10^3/cmm (157-399); Red Blood Count 3.35 10^6/uL (3.85-5.65); Red Cell Distribution Width 14.8 % (12.1-15.1)
[2025-03-27 07:12] LABS: Alanine Aminotransferase 9 U/L (0-33); Albumin Level 2.5 g/dL (3.5-5.2); Alkaline Phosphatase 108 U/L (35-105); Anion Gap 9.2 (5-19); Aspartate Amino Transferase 11 U/L (0-32); Blood Urea Nitrogen 16 mg/dL (8-23); Calcium 9.7 mg/dL (8.5-10.5); Carbon Dioxide 32 mmol/L (22-29); Chloride 99 mmol/L (98-107); Globulin 3.2 g/dL (1.3-4.6); Glucose 107 mg/dL (65-115); Osmolality Calculated 284 mOsm/kg (285-295); Potassium 4.2 mmol/L (3.5-5.1); Sodium 136 mmol/L (136-145); Total Bilirubin 0.3 mg/dL (0.15-1.2); Total Protein 5.7 g/dL (6.6-8.7)
[2025-03-27 07:34] VITALS: BP 133/75; PULSE 84; RESP 17; TEMP 37; O2SAT 95
[2025-03-27] MEDS: lactulose oral liq 20 gm/30 mL UDC 10 GM PO (07:47)
[2025-03-27] MEDS: HYDROcodone-acetaminophen 5-325 mg Tablet 1 TAB PO (07:47)
[2025-03-27] MEDS: iron polysaccharide complex 150 mg Capsule PO (07:47)
[2025-03-27] MEDS: amlodipine 10 mg Tablet PO (07:47)
[2025-03-27] MEDS: benzonatate 100 mg Capsule PO (07:47)
[2025-03-27] MEDS: pantoprazole DR 40 mg Tablet PO (07:47)
[2025-03-27 08:49] VITALS: PULSE 75; RESP 16; O2SAT 93
[2025-03-27 10:27] LABS: SARS Covid-2 Antigen Negative (Negative)
--- NOTE | 2025-03-27 10:43 | PC.NURSE ---
Addendum entered by Radha Carroll LPN 03/27/25 10:59: report called to Vicki at [facility]. awaiting transport to facility. Original Note: this nurse attempted to call report to [facility] at this time for d/c was unable to give report due to no answer
[2025-03-27 10:55] VITALS: BP 122/68; PULSE 73; RESP 16; O2SAT 97
--- NOTE | 2025-03-27 12:30 | PC.NURSE ---
iv pulled from right upper arm at this time due to dc from facility. catheter intact upon removal and patient tolerated well.
--- NOTE | 2025-03-27 12:59 | PC.SOCIAL ---
IMM Update pg 2 of IMM updated and reviewed w/ patients daughter. Copy provided and copy dated, initialed and placed in chart.
[2025-03-27 14:07] VITALS: BP 122/68; PULSE 73; RESP 16; TEMP 36.1; O2SAT 97
--- NOTE | 2025-03-27 15:43 | PM.DCS ---
Discharge Providers Date of Admission: 03/21/25 22:41 Date of Discharge: March 27, 2025 Attending Provider at Admission: Tamiko Galaviz MD Attending Provider at Discharge: Lakeisha Nicole MD Diagnoses at Discharge Discharge Diagnosis (1) Closed fracture of left superior pubic ramus: Status: Acute (2) Closed fracture of left inferior pubic ramus: Status: Acute (3) Acetabulum fracture, left: Status: Acute Qualifiers: Encounter type: initial encounter Fracture type: closed Sublocation of acetabulum: other portion of acetabulum Qualified Code(s): S32.492A - Other specified fracture of left acetabulum, initial encounter for closed fracture (4) Pelvic pain: Status: Acute (5) Hip pain: Status: Acute (6) Hypertension: Status: Acute Reason for Visit Reason for Visit: head lac s/p fall Hospital Course Hospital Course 89-year-old lady who lives at home with her caregiver, past medical history of dementia, hypertension, hyperlipidemia, currently presented to the hospital after a mechanical fall at home. She was found to have a left acetabular fracture. She was evaluated by orthopedics. Nonoperative management was recommended. Toe-touch weightbearing and up with physical therapy for the next 12 weeks. She participated with PT and OT. She had some confusion following morphine administartion therefore thiswas discontinued. She is on pain management with oral hydrocodone-APAP, toradol and did well with regards to pain. her Hb noted to be dropped from 10 on admission to 8.1. No hematemesis or melena during this admission. Pelvis CT upon admission did not show any obvious bleeding. Iron panel revealed low iron levels therefore she was started on oral iron supplementation. Her TIBC and ferritin levels were within normal range. Hospital course was complicated by development of KATI with creatinine peaking at 1.8. Was improved with hydration down to 0.8 at the time of discharge. Patient had leukocytosis upon admission, likely reactive leukocytosis. This has resolved without any directed antibiotic intervention, WBC count now at 8.6 without other localizing signs or symptoms of infection. Patient was originally planned to be discharged to SNF for ongoing physical therapy on March 25, 2025, however this was eventually delayed as patient developed intermittent hemoptysis on this day. There was streaks of blood tinge and few blood clots with expectoration noted. CT of the chest was performed which showed a 4.7 cm right upper lobe suprahilar mass with hilar extension and bronchial obstruction. This is highly suspicious of malignancy. Possibly this may be the cause of her hemoptysis. 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 We discussed potential transfer to a higher center with availability of pulmonology and bronchoscopic services to enable EBUS biopsy to assess the nature of the mass, possibly a malignancy. Additionally should patient continue to have hemoptysis a bronchoscopy may be warranted to stop the bleeding. In keeping with patient's advanced age at 89 years, her prior known wishes of not to pursue any aggressive measures and other comorbidities, patient and family decided that they do not wish to explore this any further. They understand that with this underlying malignancy, hemoptysis, this may be a terminal diagnosis for the patient. Family acknowledges understanding and declined further workup in this regard. On day of discharge patient's hemoptysis is improved but still has intermittent sputum streaking. She has been started on cough suppressants, recommended to humidify her oxygen, and also discontinued baby aspirin and any antiplatelet DVT prophylaxis at discharge. Aspirin 81 mg may be considered to be resumed once hemoptysis resolves. Above was discussed with senior living physician Dr. Rodríguez Physical Exam Narrative: General: No acute distress, AO x3, elderly frail lady HEENT: PERRLA, pupils bilaterally equal and reactive, pallors not present Chest: Normal vesicular breath sounds, no added sounds, equal good air entry bilaterally CVS: S1-S2 regular, no murmurs, no tachycardia, no gallops, no rubs Abdomen: Soft, nontender, no organomegaly, bowel sounds present Neuro: No focal deficits, no facial deformity, AO x3, power 5/5 in all limbs Urinary Catheter Management: Heath: Cath Placed During This Visit: yes, but has since been removed by the nurse Reason for Continuing Indwelling Catheter: Other Urinary Catheter Date of Insertion: 03/21/25 Urinary Catheter Time of Insertion: 21:30 Date Urinary Catheter Removed: 03/24/25 Time Urinary Catheter Discontinued: 17:00 Discharge Data Studies Completed and Pending Completed Studies During Hospitalization Category Date Time Status CT bony pelvis 30889 Stat Cat Scan 03/21/25 20:[address] cervical spin wo con* [id number] Stat Cat Scan 03/21/25 17:[address] head wo con* [id number] Stat Cat Scan 03/21/25 17:[address] abdomen pelvis [CT Angio Chest + Abdomen Cat Scan 03/25/25 14:38 Completed Pelvis w/ contrast; 41994 + 41085] Routine CXRP [XR chest 1V portable [id number]] Stat Exams 03/25/25 12:51 Completed XR chest 1V portable [id number] Stat Exams 03/22/25 04:03 Completed XR hip LT 2-3V wo/w pel* [id number] Stat Exams 03/21/25 17:36 Completed XR ribs LT mn 3V w CXR1V [id number] Stat Exams 03/21/25 17:34 Completed XR shoulder LT min 2V* [id number] Stat Exams 03/21/25 17:36 Completed Radiology Impressions Cervical Spine CT 03/21/25 17:26 IMPRESSION: 1. No acute trauma to the cervical spine is identified. 2. Incidental notation of biconcave compression deformity of T3 with 75% height loss centrally, age-indeterminate. Head CT 03/21/25 17:26 IMPRESSION: No acute intracranial abnormality. Ribs X-Ray 03/21/25 17:34 IMPRESSION: 1. No acute infiltrate. 2. No rib fracture is identified. Hip/Pelvis X-Ray 03/21/25 17:36 IMPRESSION: No acute fracture is identified. Shoulder X-Ray 03/21/25 17:36 IMPRESSION: 1. No evidence of shoulder fracture or dislocation. 2. Wedging compression deformities of the thoracic spine of uncertain age. Pelvis CT 03/21/25 20:13 IMPRESSION: Left acetabular fracture also with fractures of the left superior and inferior pubic rami Chest X-Ray 03/25/25 12:51 IMPRESSION: 1. Prominent RIGHT pulmonary hilum. This may be due to rotation however underlying infiltrate or mass could have the same appearance. There is also well widening the superior mediastinum on the RIGHT. Mediastinal mass or lymphadenopathy not excluded. This could also represent substernal goiter. Overall, no change since last study. Chest/Abdomen/Pelvis CT 03/25/25 14:38 IMPRESSION: 1. No evidence of pulmonary embolus. 2. 4.7 cm right upper lobe suprahilar mass with hilar extension and bronchial obstruction. This is highly suspicious of malignancy. Consider IMPRESSION: 1. No acute findings in the abdomen or pelvis. 2. Stable fractures in the left acetabulum and inferior left pubic ramus. 3. 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 COMMENTS: Consistent with the [employer] [place] [employer]'s Incidental Findings Committee white paper (J Am Garcia Radiol 2018): Any incidental renal lesion less than 1 cm or classified as too small to characterize, or any incidental cystic renal lesion characterized as simple-appearing, is likely benign. No follow-up imaging is recommended for these lesions per consensus recommendations based on imaging criteria. Laboratory Results WBC 8.60 10^3/uL (3.29-11.43) 03/27/25 05:43 RBC 3.35 10^6/uL (3.85-5.65) L 03/27/25 05:43 Hgb 8.00 g/dL (11.27-16.99) L 03/27/25 05:43 Hct 27.0 % (36-47) L 03/27/25 05:43 MCV 80.6 fl (85-98) L 03/27/25 05:43 MCH 23.9 pg (27-33) L 03/27/25 05:43 MCHC 29.6 g/dL (30-55) L D 03/27/25 05:43 RDW 14.8 % (12.1-15.1) 03/27/25 05:43 Plt Count 220 10^3/cmm (157-399) 03/27/25 05:43 MPV 12.2 fL (7.4-10.4) H 03/27/25 05:43 Neut % (Auto) 76.9 % 03/27/25 05:43 Lymph % (Auto) 8.4 % 03/27/25 05:43 Wolfe % (Auto) 11.9 % 03/27/25 05:43 Eos % (Auto) 1.3 % 03/27/25 05:43 Baso % (Auto) 0.5 % 03/27/25 05:43 Neut # (Auto) 6.62 10^3/uL (1.8-7.7) 03/27/25 05:43 Lymph # (Auto) 0.7 10^3/uL (0.8-4.8) L 03/27/25 05:43 Wolfe # (Auto) 1.0 10^3/uL (0.2-0.9) H 03/27/25 05:43 Eos # (Auto) 0.1 10^3/uL (0.0-0.8) 03/27/25 05:43 Baso # (Auto) 0.0 10^3/uL (0.0-0.1) 03/27/25 05:43 Nucleated RBC % (auto) 0 % 03/27/25 05:43 Nucleated RBCs # 0.0 /100WBC 03/27/25 05:43 D-Dimer 2.55 ug/mLFEU (0-0.59) H 03/25/25 13:14 Sodium 136 mmol/L (136-145) 03/27/25 05:43 Potassium 4.2 mmol/L (3.5-5.1) 03/27/25 05:43 Chloride 99 mmol/L (98-107) 03/27/25 05:43 Carbon Dioxide 32 mmol/L (22-29) H 03/27/25 05:43 Anion Gap 9.2 (5-19) 03/27/25 05:43 BUN 16 mg/dL (8-23) 03/27/25 05:43 Creatinine 0.5 mg/dL (0.5-0.9) 03/27/25 05:43 GFR Calculation Not Reportable 03/27/25 05:43 Glucose 107 mg/dL (65-115) 03/27/25 05:43 POC Glucose 132 mg/dL (70-110) H 03/23/25 17:17 Calculated Osmolality 284 mOsm/kg (285-295) L 03/27/25 05:43 Calcium 9.7 mg/dL (8.5-10.5) 03/27/25 05:43 Magnesium 2.0 mg/dL (1.7-2.3) 03/23/25 05:01 Iron 15 ug/dL (37-145) L 03/24/25 04:44 TIBC 128 mcg/dl 03/24/25 04:44 % Saturation 11.7 % (20-50) L 03/24/25 04:44 Unsat Iron Binding 113 ug/dL (112-347) 03/24/25 04:44 Ferritin 609 ng/mL (15-150) H 03/24/25 04:44 Total Bilirubin 0.3 mg/dL (0.15-1.2) 03/27/25 05:43 AST 11 U/L (0-32) 03/27/25 05:43 ALT 9 U/L (0-33) 03/27/25 05:43 Alkaline Phosphatase 108 U/L (35-105) H 03/27/25 05:43 Total Protein 5.7 g/dL (6.6-8.7) L 03/27/25 05:43 Albumin 2.5 g/dL (3.5-5.2) L 03/27/25 05:43 Globulin 3.2 g/dL (1.3-4.6) 03/27/25 05:43 Vitamin B12 719 pg/mL (232-1245) 03/24/25 04:44 Folate 6.2 ng/mL (4.8-37.3) 03/24/25 04:44 Procalcitonin 0.32 ng/mL (0-0.5) 03/22/25 14:52 TSH 1.93 uIU/mL (0.27-4.20) 03/22/25 14:52 Urine Color Yellow (Yellow) 03/21/25 20:39 Urine Appearance Clear (CLEAR) 03/21/25 20:39 Urine pH 6.0 (5-7) 03/21/25 20:39 Ur Specific [place] 1.022 (1.005-1.030) 03/21/25 20:39 Urine Protein 1+ (Negative) A 03/21/25 20:39 Urine Glucose (UA) Negative (Normal) 03/21/25 20:39 Urine Ketones Trace (Negative) 03/21/25 20:39 Urine Blood Negative (Negative) 03/21/25 20:39 Urine Nitrate Negative (Negative) 03/21/25 20:39 Urine Bilirubin Negative (Negative) 03/21/25 20:39 Urine Urobilinogen 1.0 mg/dL (Negative) 03/21/25 20:39 Ur Leukocyte Esterase Negative (Negative) 03/21/25 20:39 Urine RBC 0-2 /hpf (0-2) 03/21/25 20:39 Urine WBC 0-5 /hpf (0-5) 03/21/25 20:39 Ur Squamous Epith Cells 0-5 /hpf (0-5) 03/21/25 20:39 Amorphous Sediment Not Reportable 03/21/25 20:39 Urine Bacteria None seen /hpf (NONE) 03/21/25 20:39 Hyaline Casts 6.20 /lpf 03/21/25 20:39 SARS-CoV-2 Ag (Rapid) Negative (Negative) 03/27/25 08:58 Vitals Last Vital Signs Temp 97.0 F L 03/27/25 14:07 Pulse 73 03/27/25 14:07 Resp 16 03/27/25 14:07 BP 122/68 03/27/25 14:07 Pulse Ox 97 03/27/25 14:07 O2 Del Method Nasal Cannula 03/27/25 10:55 O2 Flow Rate 2 03/27/25 10:55 Discharge Plan Discharge Patient Disposition: Xfer SNF Condition: Stable Prescriptions: New polysaccharide iron complex [Ferrex 150] 150 mg iron Capsule 150 mg PO BIDWM 30 Days Qty: 30 0RF tramadol 50 mg Tablet 50 mg PO Q8H PRN (Reason: Moderate Pain) 5 Days Qty: 15 0RF lactulose 10 gram/15 mL Solution 10 g PO DAILY PRN (Reason: constipation) 30 Days Qty: 30 0RF Continued potassium chloride 10 mEq Capsule, Extended Release 10 meq PO DAILY atorvastatin 20 mg Tablet 20 mg PO QPM trazodone 50 mg Tablet 50 mg PO BEDTIME PRN (Reason: Insomnia) polyethylene glycol 3350 [Miralax] 17 gram Powder In Packet 17 g PO DAILY PRN (Reason: Constipation) donepezil 10 mg Tablet 10 mg PO BEDTIME levothyroxine 88 mcg Tablet 88 mcg PO QAM amlodipine 10 mg Tablet 10 mg PO DAILY sertraline 25 mg Tablet 25 mg PO DAILY omeprazole 20 mg Capsule,Delayed Release(Dr/Ec) 20 mg PO DAILY mirabegron [Myrbetriq] 25 mg Tablet Extended Release 24 Hr 25 mg PO BEDTIME magnesium oxide 400 mg magnesium Tablet 400 mg PO BEDTIME Changed hydralazine 50 mg Tablet 25 mg PO TID PRN (Reason: prn) 30 Days Qty: 30 0RF Rx Instructions: Do not take if SBP<100 or DBP<60 Held aspirin 81 mg Tablet 81 mg PO DAILY Hold Instructions: Resume on 04/03/25. hold until hemoptysis resolves Discontinued clonidine 0.2 mg/24 hr patch weekly 1 patch transdermal Q7D lisinopril 20 mg Tablet 20 mg PO BID Discharge Orders: Discharge Order (Routine); Ordered 03/27/25 Ordered By: Lakeisha Nicole Referrals: [facility] [Outside] Papa Haynes DO [Physician, Orthopedics] - 04/07/25 8:15 am Referral Note: Caleb Lares [Referring, Family Practice] - 04/07/25 1:40 pm Discharge Diet: Usual diet Discharge Activity: Resume usual activity Patient Instructions: Lactulose (By mouth), Tramadol (By mouth), Pelvic Fracture (GEN), Opioid Safety Activity Restrictions/Additional Instructions: Toe-touch weightbearing left lower extremity Follow-up orthopedic clinic in 2 weeks. Discharge Attestations Time Spent in Discharge Care*: greater than 30 min Quality Metrics Clinical Quality Measures [ No reported AMI, CVA or VTE this stay] Coding Level of Care Code Acute Code for Chg Fwd Diagnoses Closed fracture of left superior pubic ramus S32.512A Closed fracture of left inferior pubic ramus S32.592A Other closed fracture of left acetabulum, initial encounter S32.492A Encounter type: initial encounter Fracture type: closed Sublocation of acetabulum: other portion of acetabulum Pelvic pain R10.2 Hip pain M25.559 Hypertension I10
== END 2025-03-27 14:09 | disposition skilled nursing facility (03) | DRG 947 ==
LOC: ER 22:47 → MEDSURG 22:55
PROVIDERS: Family Medicine; Internal Medicine; Admitting Provider Internal Medicine; Emergency Provider Emergency Medicine; Visit Provider Student in an Organized Health Care Education/Training Program
DX: G89.11 Acute pain due to trauma (principal); S32.402A Unspecified fracture of left acetabulum, initial encounter for closed fracture; S32.512A Fracture of superior rim of left pubis, initial encounter for closed fracture; S32.592A Other specified fracture of left pubis, initial encounter for closed fracture; N17.9 Acute kidney failure, unspecified; R04.2 Hemoptysis; W19.XXXA Unspecified fall, initial encounter; Y92.002 Bathroom of unspecified non-institutional (private) residence as the place of occurrence of the external cause; I10 Essential (primary) hypertension; F03.90 Unspecified dementia, unspecified severity, without behavioral disturbance, psychotic disturbance, mood disturbance, and anxiety; E78.5 Hyperlipidemia, unspecified; R91.8 Other nonspecific abnormal finding of lung field; R79.0 Abnormal level of blood mineral; Z79.82 Long term (current) use of aspirin
CPT/HCPCS: 36415; 36416; 51702; 70450; 71045; 71101; 71275; 72125; 72192; 73030; 73502; 74177; 80053; 81001; 82607; 82728; 82746; 82962; 83540; 83550; 83735; 84145; 84443; 85025; 85378; 87426; 94640; 96372; 96374; 96375; 97161; 97165; 97530; 97535; 99285; J0131; J1644; J1885; J1938; J2270; J2405; J7030; J9999